=== PATIENT | female | born 1960 | race Caucasian/White ===

== ENCOUNTER 2020-10-24 10:40 | Observation (INO) | payer OTHER, SELFPAY ==
[2020-10-24] VITALS (13 sets, daily range): BP systolic 123–169; BP diastolic 69–91; PULSE 105–124; RESP 15–18; TEMP 36.6; O2SAT 95–98; BMI 29.5; BMI 31.5
[2020-10-24] MEDS: SODIUM CHLORIDE 0.9% 1,000 ML 1000 ML IV ×2 (11:43→13:38)
[2020-10-24 12:21] LABS: Add Manual Diff / Slide Review NO; Basophils Absolute Auto 0 /uL (0-100); Basophils Percent Auto 0.5 % (0-2); Eosinophils Absolute Auto 0 /uL (0-450); Eosinophils Percent Auto 0.3 % (2-4); Hematocrit 37.4 % (36-46); Hemoglobin 12.1 g/dL (12.0-16.0); Lymphocytes Absolute Auto 1000 /uL (1100-4500); Lymphocytes Percent Auto 14.7 % (25-40); Mean Corpuscular HGB Conc 32.5 % (30-36); Mean Corpuscular Hemoglobin 29.7 PG (26-34); Mean Corpuscular Volume 91.3 fL (80-100); Monocytes Absolute Auto 800 /uL (0-900); Neutrophils Absolute Auto 5000 /uL (1500-7000); Neutrophils Percent Auto 73.5 % (50-75); Platelet Count 277 X10^3/uL (150-400); Red Blood Cell Count 4.09 X10^6/uL (4.0-5.2); Red Cell Distribution Width 16.2 % (11.6-14.8); White Blood Cell Count 6.9 X10^3/uL (4.5-11.0)
[2020-10-24 12:26] LABS: Alanine Aminotransferase 247 IU/L (<35); Albumin 4.7 g/dL (3.5-5.0); Albumin Globulin Ratio 1.3 (1.0-2.8); Alkaline Phosphatase 162 U/L (38-126); Aspartate Aminotransferase 239 IU/L (14-36); BUN Creatinine Ratio 26.5 (6-22); Bilirubin Total 0.7 mg/dL (0.2-1.3); Blood Urea Nitrogen 18 mg/dL (7-17); Calcium 9.3 mg/dL (8.4-10.2); Carbon Dioxide 16 mmol/L (22-32); Chloride 100 mmol/L (98-107); Estimated Glomerular Filt Rate > 60.0 mL/min (>60); Ethanol (ETOH) 85 mg/dL; Globulin 3.6 g/dL (1.7-4.1); Glucose 232 mg/dL (80-110); HEMOLYSIS < 15 (0-50); Potassium 3.8 mmol/L (3.4-5.1); Sodium 137 mmol/L (137-145); Total Protein 8.3 g/dL (6.3-8.2)
--- NOTE | 2020-10-24 12:42 | ED.ALCOHOL ---
HPI - Alcohol General Chief Complaint: Toxicology Problem Stated Complaint: alcohol withdrawl x4 days Time Seen by Provider: 10/24/20 12:25 Source: patient Mode of arrival: Ambulatory Limitations: no limitations Related Data Home Medications Medication Instructions Recorded Confirmed bupropion HCl 300 mg 24 hr tablet, 300 mg PO QAM 09/18/20 09/18/20 extended release lisinopril 2.5 mg tablet 2.5 mg PO DAILY 09/18/20 09/18/20 metformin 500 mg tablet 500 mg PO BID tab 09/18/20 09/18/20 omeprazole magnesium 20 mg 20 mg PO DAILY 09/18/20 09/18/20 tablet,delayed release Previous Rx's Medication Instructions Recorded cyclobenzaprine 10 mg tablet 10 mg PO BEDTIME #30 tab 09/18/20 Allergies Allergy/AdvReac Type Severity Reaction Status Date / Time ciprofloxacin [From Cipro] AdvReac GI upset Verified 10/24/20 11:11 morphine AdvReac headache Verified 10/24/20 11:11 Patient History Social History Smoking Status: Never smoker alcohol intake: never Smoking Status: Never smoker alcohol intake frequency: 3 or more drinks per day Alcohol type: hard liquor Substance Use Type: does not use Exam Initial Vital Signs Initial Vital Signs: Vital Signs Temperature 97.9 F 10/24/20 11:09 Pulse Rate 124 H 10/24/20 11:09 Respiratory Rate 15 10/24/20 11:09 Blood Pressure 169/91 H 10/24/20 11:09 Pulse Oximetry 97 10/24/20 11:09 Scores [id number] Citation: @1240-CIWA score 2 GCS [place] coma scale eye opening: Spontaneous [place] coma scale verbal response: Orientated [place] coma scale motor response: Obey commands [place] coma scale total score: 15 Course Orders Ordered: ED Orders 10/24/20 11:35 Complete Blood Count AUTO DIFF Stat Comprehensive Metabolic Panel Stat Ethanol (ETOH) Stat 10/24/20 12:27 EKG-12 Lead Stat 10/24/20 12:41 Lactate (Lactic Acid) Stat Lipase Stat Urine Drug Screen, Rapid Stat Discontinued Medications Sodium Chloride (Normal Saline 0.9%) 1,000 mls @ 1,000 mls/hr IV BOLUS ONE Stop: 10/24/20 12:39 Last Admin: 10/24/20 11:43 Dose: 1,000 mls/hr Documented by: [email or web address] Lorazepam (Lorazepam 2 Mg/Ml Inj) 0.5 mg IV NOW ONE Stop: 10/24/20 12:42 Vital Signs Vital signs: Vital Signs - 8 hr 10/24/20 11:09 Temperature 97.9 F Pulse Rate 124 H Respiratory Rate 15 Blood Pressure 169/91 H Pulse Oximetry 97 MDM - Alcohol Lab Data Result diagrams: 10/24/20 11:35 10/24/20 11:35 Labs: Lab Results 10/24/20 10/24/20 Range/Units 11:35 11:35 WBC 6.9 (4.5-11.0) X10^3/uL RBC 4.09 (4.0-5.2) X10^6/uL Hgb 12.1 (12.0-16.0) g/dL Hct 37.4 (36-46) % MCV 91.3 (80-100) fL MCH 29.7 (26-34) PG MCHC 32.5 (30-36) % RDW 16.2 H (11.6-14.8) % Plt Count 277 (150-400) X10^3/uL Neut % (Auto) 73.5 (50-75) % Lymph % (Auto) 14.7 L (25-40) % [place] % (Auto) 11.0 (3-14) % Eos % (Auto) 0.3 L (2-4) % Baso % (Auto) 0.5 (0-2) % Neut # (Auto) 5000 (1236-8903) /uL Lymph # (Auto) 1000 L (0401-9324) /uL [place] # (Auto) 800 (0-900) /uL Eos # (Auto) 0 (0-450) /uL Baso # (Auto) 0 (0-100) /uL Sodium 137 (137-145) mmol/L Potassium 3.8 (3.4-5.1) mmol/L Chloride 100 (98-107) mmol/L Carbon Dioxide 16 L (22-32) mmol/L BUN 18 H (7-17) mg/dL Creatinine 0.68 (0.52-1.04) mg/dL Estimated GFR > 60.0 (>60) mL/min BUN/Creatinine Ratio 26.5 H (6-22) Glucose 232 H (80-110) mg/dL Calcium 9.3 (8.4-10.2) mg/dL Total Bilirubin 0.7 (0.2-1.3) mg/dL AST 239 H (14-36) IU/L ALT 247 H (<35) IU/L Alkaline Phosphatase 162 H (38-126) U/L Total Protein 8.3 H (6.3-8.2) g/dL Albumin 4.7 (3.5-5.0) g/dL Globulin 3.6 (1.7-4.1) g/dL Albumin/Globulin Ratio 1.3 (1.0-2.8) Ethyl Alcohol 85 H ( - 10) mg/dL Discharge Plan Departure Prescriptions: No Action bupropion HCl [Wellbutrin XL] 300 mg tablet extended release 24 hr 300 mg PO QAM RF: 0 lisinopril 2.5 mg tablet 2.5 mg PO DAILY RF: 0 omeprazole magnesium [Prilosec OTC] 20 mg tablet,delayed release (DR/EC) 20 mg PO DAILY RF: 0 metformin 500 mg tablet 500 mg PO BID RF: 0 cyclobenzaprine 10 mg tablet 10 mg PO BEDTIME Qty: 30 RF: 0
--- NOTE | 2020-10-24 12:44 | ED.ALCOHOL ---
HPI - Alcohol <SANTOSH Chatterjee - Last Filed: 10/24/20 20:34> General Chief Complaint: Toxicology Problem Stated Complaint: alcohol withdrawl x4 days Time Seen by Provider: 10/24/20 12:25 Source: patient Mode of arrival: Ambulatory Limitations: no limitations History of Present Illness HPI narrative: This is a 60 year female, nonsmoker, who has past medical history significant for diabetes, acid reflux, depression, diverticulitis presents to ED with chief complain of epigastric and left lower quadrant pain, chills and feeling sweaty with nausea and 1 episode of vomiting last night. Patient reports left lower quadrant for last 2-3 weeks. She has been having more frequent and loose stools in the mornings but denies blood in her stools. Patient also reports had laparoscopic surgery for left ovarian cyst removal in the past. Patient denies urinary symptoms, chest pain, dyspnea, or back pain. Patient contributed her symptoms to ETOH use and she is currently trying to stop drinking. Patient reports she is here to get stable enough to return to home in [place]. Patient states they have a boat in town and she and her spouse arrived 5 days ago. Patient reports has been drinking a pint of hard liquor daily since August this year. She has been sober for 2.5 years and had used Librium to stop drinking at that time which was prescribed by her PCP and managed by her spouse at home. Patient started drinking due to Covid and stress from this. She states has not been able to see her grandchildren who are 4 and 10 year-old with Covid precautions and they are living in [place] as well. Prior to August, she used to drink lightly about once a week. Patient reports had 1 shot of hard liquor this morning at 9:00 a.m. which helped feeling sweaty and anxious and also had a couple of shots last night at 7:00 p.m. Patient had decreased alcohol intake of half of her usual consumption last 4 days. Patient denies known exposure to COVID. Patient denies cough, runny nose, sore throat. Related Data Home Medications Medication Instructions Recorded Confirmed bupropion HCl 300 mg 24 hr tablet, 300 mg PO QAM 09/18/20 10/24/20 extended release lisinopril 2.5 mg tablet 2.5 mg PO DAILY 09/18/20 10/24/20 metformin 500 mg tablet 1,000 mg PO BID tab 09/18/20 10/24/20 omeprazole magnesium 20 mg 20 mg PO DAILY 09/18/20 10/24/20 tablet,delayed release Previous Rx's Medication Instructions Recorded chlordiazepoxide HCl 25 mg PO BID #5 cap 10/25/20 folic acid 1 mg PO DAILY #30 tab 10/25/20 multivitamin with folic acid 1 tab PO DAILY #30 tab 10/25/20 [Tab-A-Ximena] thiamine HCl (vitamin B1) [Vitamin 100 mg PO DAILY #30 tab 10/25/20 B-1] Allergies Allergy/AdvReac Type Severity Reaction Status Date / Time ciprofloxacin [From Cipro] AdvReac GI upset Verified 10/24/20 11:11 morphine AdvReac headache Verified 10/24/20 11:11 Review of Systems <SANTOSH Chatterjee - Last Filed: 10/24/20 20:34> Review of Systems Narrative: General: Denies (+) sweaty and chills, fatigue, malaise, sweats. HEENT: Denies sinus pain, ear pain, sore throat, difficulty swallowing, dizziness. Respiratory: Denies dyspnea, cough, wheezing, hemoptysis, sputum. Cardiovascular: Denies chest pain, palpitations, orthopnea, edema. Gastrointestinal: HPI : Denies dysuria, frequency, incontinence, hematuria, urinary retention. Musculoskeletal: Denies weakness, joint pain or bony pain. Skin: Denies rash, skin lesions, or other. Neurologic: Denies weakness, headache, numbness, change in speech, confusion, seizures, incoordination. Psychiatric: She denies suicidal or homicidal thoughts. Reports feeling anxious before coming to ED and taking an ETOH average. 12-point review of systems is negative except for those stated above. Patient History <SANTOSH Chatterjee - Last Filed: 10/24/20 20:34> Medical History (Updated 10/24/20 @ 21:12 by SANTOSH Gaspar) Acid reflux Alcoholism Depression Diabetes Diverticulitis Surgical History (Updated 10/24/20 @ 21:12 by SANTOSH Gaspar) History of knee surgery History of removal of ovarian cyst Family History (Updated 10/24/20 @ 21:13 by SANTOSH Gaspar) Father No significant medical problems Mother Hypertension Daughter No significant medical problems Social History household members: spouse Smoking Status: Former smoker alcohol intake: current Smoking Status: Never smoker alcohol intake frequency: 3 or more drinks per day Alcohol type: hard liquor Substance Use Type: does not use Exam <SANTOSH Chatterjee - Last Filed: 10/24/20 20:34> Narrative Exam Narrative: GEN: Alert, oriented x 3, well appearing and nourished, and in no acute distress. Became tearful when talked about her grandchildren. Head: Normal cephalic, atraumatic. No scalp or temporal tenderness, palpable mass or rash. EYES: Pupils are equal, round, and reactive to light and accommodation. Extraocular muscles are intact bilaterally. There is no subconjunctival hemorrhage, exudate and sclera non-icteric. ENT: Hearing grossly intact. Nose without bleeding, purulent discharge or deviation. Mucous membrane moist, no mucosal lesion. Throat without erythema, tonsillar hypertrophy or exudate. Uvula in midline, airway patent. Neck: Trachea in midline. No JVD, non-tender without lymphadenopathy. No masses or thyroid megaly. Supple, non-tender and no meningeal signs. CARDIAC: Normal regular rate and rhythm without murmurs, gallops, or rubs. No chest wall tenderness. No peripheral edema, cyanosis or pallor. Capillary refill is less than 2 seconds. RESPIRATORY: Lungs are clear to auscultate bilaterally. No cough, wheezes, rales, or rhonchi. No stridor, respiratory distress, increase work of breathing, or accessary muscle used. ABD: Abdomen soft, tender to palpate in epigastric and left mid to low quadrant. Abdominal non-distended. No guarding or rebound tenderness to palpate. Bowel sounds are normal in all 4 quadrants. There is no palpable masses or organomegaly. EXT: Full painless ROM of all extremities with no loss of sensation, strength, effusion or edema. SKIN: Warm, dry, normal color for patient. No erythema, lesions or rash over visible areas. BACK: Nontender without deformity or crepitance. No flank tenderness. NEUROLOGICAL: Alert and oriented to place, time and person. Sensation and motor function intact bilaterally. No facial droops, dysphasia. PSYCHIATRIC: Good judgement and reason, without hallucinations, abnormal affect or abnormal behaviors during the examination. Patient is not suicidal or homicidal. Initial Vital Signs Initial Vital Signs: Vital Signs Temperature 97.9 F 10/24/20 11:09 Pulse Rate 124 H 10/24/20 11:09 Respiratory Rate 15 10/24/20 11:09 Blood Pressure 169/91 H 10/24/20 11:09 Pulse Oximetry 97 10/24/20 11:09 <Dutch Hatfield MD - Last Filed: 12/09/20 19:59> Initial Vital Signs Initial Vital Signs: Vital Signs Temperature 97.9 F 10/24/20 11:09 Pulse Rate 124 H 10/24/20 11:09 Respiratory Rate 15 10/24/20 11:09 Blood Pressure 169/91 H 10/24/20 11:09 Pulse Oximetry 97 10/24/20 11:09 Scores <SANTOSH Chatterjee - Last Filed: 10/24/20 20:34> GCS [place] coma scale eye opening: Spontaneous [place] coma scale verbal response: Orientated [place] coma scale motor response: Obey commands [place] coma scale total score: 15 qSOFA Altered Mental Status (GCS <15): No Respiratory rate greater than/equal to 22: No Systolic blood pressure less than or equal to 100: No qSOFA Total: 0 0-1 Not High Risk 1-3 High risk Course <SANTOSH Chatterjee - Last Filed: 10/24/20 20:34> Orders Ordered: Discontinued Medications Acetaminophen (Acetaminophen 325 Mg Tablet) 650 mg PO Q6HR PRN PRN Reason: Fever/Mild Pain (1-3) Al Hydrox/Mg Hydrox/Simethicone (Mag Hydrox/Alum/Simeth 30 Ml Udc) 30 ml PO Q6HR PRN PRN Reason: Dyspepsia Bupropion HCl (Bupropion Xl 150 Mg Tab) 300 mg PO DAILY [facility] Last Admin: 10/25/20 08:07 Dose: 300 mg Documented by: BALJINDER Calcium Carbonate (Calcium Carbonate 500 Mg Tab) 1,000 mg PO Q4HR PRN PRN Reason: Dyspepsia Chlordiazepoxide HCl (Chlordiazepoxide 25 Mg Capsule) 50 mg PO Q6HR [facility] Last Admin: 10/24/20 18:47 Dose: 50 mg Documented by: DAKOTA Chlordiazepoxide HCl (Chlordiazepoxide 25 Mg Capsule) 50 mg PO TID [facility] Chlordiazepoxide HCl (Chlordiazepoxide 25 Mg Capsule) 50 mg PO Q6HR [facility] Last Admin: 10/25/20 05:50 Dose: 50 mg Documented by: Admin: 10/25/20 01:23 Dose: 50 mg Documented by: RAGHU Chlordiazepoxide HCl (Chlordiazepoxide 25 Mg Capsule) 50 mg PO BID [facility] Dextrose (Dextrose 50 % In Water 25 Gm/50 Ml Syringe) 25 gm IV PRN PRN; Protocol PRN Reason: Hypoglycemia Folic Acid (Folic Acid 1 Mg Tablet) 1 mg PO DAILY [facility] Last Admin: 10/25/20 08:07 Dose: 1 mg Documented by: BALJINDER Heparin Sodium (Porcine) (Heparin 5,000 Unit/Ml Vial) 5,000 unit SUBCUT BID [facility] Last Admin: 10/25/20 08:23 Dose: 5,000 unit Documented by: Admin: 10/24/20 21:00 Dose: 5,000 unit Documented by: DAKOTA Hydromorphone HCl (Hydromorphone 0.5 Mg Inj) 0.5 mg IV NOW ONE Stop: 10/24/20 15:36 Last Admin: 10/24/20 15:41 Dose: 0.5 mg Documented by: DONAVAN Sodium Chloride (Normal Saline 0.9%) 1,000 mls @ 1,000 mls/hr IV BOLUS ONE Stop: 10/24/20 12:39 Last Infusion: 10/24/20 13:37 Dose: 0 mls/hr Documented by: Admin: 10/24/20 11:43 Dose: 1,000 mls/hr Documented by: DONAVAN Sodium Chloride (Normal Saline 0.9%) 1,000 mls @ 1,000 mls/hr IV BOLUS ONE Stop: 10/24/20 14:33 Last Infusion: 10/24/20 14:58 Dose: 0 mls/hr Documented by: Admin: 10/24/20 13:38 Dose: 1,000 mls/hr Documented by: DONAVAN Sodium Chloride (Normal Saline 0.9%) 250 mls @ 999 mls/hr IV BOLUS ONE Stop: 10/24/20 13:53 Last Infusion: 10/24/20 15:08 Dose: 0 mls/hr Documented by: Admin: 10/24/20 14:50 Dose: 999 mls/hr Documented by: DONAVAN Piperacillin Sod/Tazobactam (Sod 4.5 gm/ Sodium Chloride) 100 mls @ 200 mls/hr IV NOW ONE Stop: 10/24/20 14:11 Last Admin: 10/24/20 18:35 Dose: Not Given Documented by: DAKOTA Piperacillin/Tazobactam/Dextrose (Zosyn) 4.5 gm in 100 mls @ 200 mls/hr IV NOW ONE Stop: 10/24/20 14:29 Last Infusion: 10/24/20 14:31 Dose: 0 mls/hr Documented by: Admin: 10/24/20 13:57 Dose: 200 mls/hr Documented by: DONAVAN Sodium Chloride (Normal Saline 0.9%) 1,000 mls @ 125 mls/hr IV CONT KRISTA Last Admin: 10/24/20 15:49 Dose: 125 mls/hr Documented by: DONAVAN Sodium Chloride (Normal Saline 0.9%) 1,000 mls @ 125 mls/hr IV CONT KRISTA Last Admin: 10/25/20 03:42 Dose: 125 mls/hr Documented by: MALACHIRASGEOVANNY Magnesium Sulfate 2 gm/ Folic Acid 1 mg/ Thiamine HCl 100 mg / Multivitamins 10 ml/ Sodium Chloride 1,015.2 mls @ 150 mls/hr IV NOW ONE Stop: 10/25/20 02:56 Last Admin: 10/24/20 21:34 Dose: 150 mls/hr Documented by: DAKOTA Sodium Chloride (Normal Saline 0.9%) 500 mls @ 1,000 mls/hr IV BOLUS ONE Stop: 10/24/20 21:14 Last Admin: 10/24/20 20:57 Dose: 1,000 mls/hr Documented by: DAKOAT Insulin Aspart (Insulin Aspart 100 Unit/Ml Insuln Pen) 0 unit SUBCUT [facility]; Protocol Last Admin: 10/25/20 13:01 Dose: Not Given Documented by: Admin: 10/25/20 08:09 Dose: 2 unit Documented by: BALJINDER Cosigned by: JENNIFER Admin: 10/24/20 21:02 Dose: 1 unit Documented by: DAKOTA Cosigned by: LISBETH Ketorolac Tromethamine (Ketorolac 60 Mg/2 Ml Vial) 15 mg IV NOW ONE Stop: 10/24/20 14:48 Last Admin: 10/24/20 14:55 Dose: 15 mg Documented by: DONAVAN Lisinopril (Lisinopril 5 Mg Tablet) 2.5 mg PO DAILY [facility] Last Admin: 10/25/20 08:09 Dose: 2.5 mg Documented by: BALJINDER Lorazepam (Lorazepam 2 Mg/Ml Inj) 0.5 mg IV NOW ONE Stop: 10/24/20 12:42 Last Admin: 10/24/20 12:49 Dose: 0.5 mg Documented by: DONAVAN Lorazepam (Lorazepam 2 Mg/Ml Inj) 0.5 mg IV NOW ONE Stop: 10/24/20 14:48 Last Admin: 10/24/20 14:54 Dose: 0.5 mg Documented by: DONAVAN Lorazepam (Lorazepam 2 Mg/Ml Inj) 0 mg IV CIWAPRN PRN; Protocol PRN Reason: Alcohol Withdrawal Lorazepam (Lorazepam 1 Mg Tablet) 0 mg PO CIWAPRN PRN; Protocol PRN Reason: Alcohol Withdrawal Multivitamins (Multivitamin 1 Tablet) 1 tab PO DAILY [facility] Last Admin: 10/25/20 08:07 Dose: 1 tab Documented by: BALJINDER Naloxone HCl (Naloxone 0.4 Mg/Ml Vial) 0.2 mg IV Q2MIN PRN PRN Reason: Opiate Reversal Ondansetron HCl (Ondansetron 4 Mg/2 Ml Inj) 4 mg IV Q8HR PRN PRN Reason: Nausea And Vomiting Oxycodone HCl (Oxycodone Ir 5 Mg Tablet) 5 mg PO Q4HR PRN PRN Reason: Pain, Moderate (4-6) Oxycodone HCl (Oxycodone Ir 10 Mg Tablet) 10 mg PO Q4HR PRN PRN Reason: Pain, Severe (7-10) Pantoprazole Sodium (Pantoprazole 40 Mg Vial) 40 mg IV NOW ONE Stop: 10/24/20 18:46 Last Admin: 10/24/20 18:54 Dose: 40 mg Documented by: DAKOTA Pantoprazole Sodium (Pantoprazole 20 Mg Tablet) 40 mg PO 0600 [facility] Last Admin: 10/25/20 05:50 Dose: 40 mg Documented by: RAGHU Pantoprazole Sodium (Pantoprazole 40 Mg Tablet) 40 mg PO 0600 [facility] Sodium Chloride (Sodium Chloride 0.9% Flush) 10 ml IV PRN PRN PRN Reason: Flush Sodium Chloride (Sodium Chloride 0.9% Flush) 10 ml IV BID [facility] Last Admin: 10/25/20 08:52 Dose: Not Given Documented by: BALJINDER Thiamine HCl (Thiamine 100 Mg Tablet) 100 mg PO DAILY [facility] Stop: 10/28/20 09:01 Last Admin: 10/25/20 08:07 Dose: 100 mg Documented by: BALJINDER Reevaluation(s) Reevaluation #1: Discussed findings of elevated lactate of 7.9 with the patient and additional lab testings, US of abdomen and antibiotic medication will be administered with the patient. The patient is in NAD but still has mild tachycardia of [address] Hatfield with the findings and he recommended 30 ml/kg IV bolus and to start IV antibiotic medications Zosyn of 4.5 G with additional lab tests. Time: 13:49 Reevaluation #2: Waiting for 2nd Lactate result. Patient reports remaining pain in left quadrant, epigastric region with palpation and rates as 5/10. Time: 15:37 Consultations Consultation #1: Consulted Dr. Hudson for admission under observation for elevated lactate and abdominal pain. She recommended consultation to Dr. Sanderson before moving to [facility]. She recommended additional orders for stool culture, C diff test, VBG and ketones (from 1st blood sample). Time: 15:50 Consultation #2: Spoke with Dr. Sanderson requesting consultation and evaluation on abdominal pain at ER bedside as Dr. Vasquez' request. Time: 16:02 Consultation #3: Dr. Sanderson assessed the patient at bedside and suggested no abdominal surgical intervention is needed at this time and he contributed her symptoms to an alcohol withdrawal. Time: 16:35 Vital Signs Vital signs: Vital Signs - 8 hr 10/24/20 13:35 10/24/20 13:42 10/24/20 14:00 Pulse Rate 109 H 110 H Blood Pressure 136/73 139/76 Pulse Oximetry 96 97 97 10/24/20 14:30 10/24/20 15:00 10/24/20 15:30 Pulse Rate 112 H 110 H 109 H Blood Pressure 124/72 133/69 123/69 Pulse Oximetry 97 98 98 10/24/20 16:00 10/24/20 16:30 Pulse Rate 105 H 108 H Blood Pressure 129/74 155/88 H Pulse Oximetry 96 97 <Dutch Hatfield MD - Last Filed: 12/09/20 19:59> Orders Ordered: Discontinued Medications Acetaminophen (Acetaminophen 325 Mg Tablet) 650 mg PO Q6HR PRN PRN Reason: Fever/Mild Pain (1-3) Al Hydrox/Mg Hydrox/Simethicone (Mag Hydrox/Alum/Simeth 30 Ml Udc) 30 ml PO Q6HR PRN PRN Reason: Dyspepsia Bupropion HCl (Bupropion Xl 150 Mg Tab) 300 mg PO DAILY [facility] Last Admin: 10/25/20 08:07 Dose: 300 mg Documented by: BALJINDER Calcium Carbonate (Calcium Carbonate 500 Mg Tab) 1,000 mg PO Q4HR PRN PRN Reason: Dyspepsia Chlordiazepoxide HCl (Chlordiazepoxide 25 Mg Capsule) 50 mg PO Q6HR [facility] Last Admin: 10/24/20 18:47 Dose: 50 mg Documented by: DAKOTA Chlordiazepoxide HCl (Chlordiazepoxide 25 Mg Capsule) 50 mg PO TID [facility] Chlordiazepoxide HCl (Chlordiazepoxide 25 Mg Capsule) 50 mg PO Q6HR [facility] Last Admin: 10/25/20 05:50 Dose: 50 mg Documented by: Admin: 10/25/20 01:23 Dose: 50 mg Documented by: RAGHU Chlordiazepoxide HCl (Chlordiazepoxide 25 Mg Capsule) 50 mg PO BID [facility] Dextrose (Dextrose 50 % In Water 25 Gm/50 Ml Syringe) 25 gm IV PRN PRN; Protocol PRN Reason: Hypoglycemia Folic Acid (Folic Acid 1 Mg Tablet) 1 mg PO DAILY [facility] Last Admin: 10/25/20 08:07 Dose: 1 mg Documented by: BALJINDER Heparin Sodium (Porcine) (Heparin 5,000 Unit/Ml Vial) 5,000 unit SUBCUT BID [facility] Last Admin: 10/25/20 08:23 Dose: 5,000 unit Documented by: Admin: 10/24/20 21:00 Dose: 5,000 unit Documented by: DAKOTA Hydromorphone HCl (Hydromorphone 0.5 Mg Inj) 0.5 mg IV NOW ONE Stop: 10/24/20 15:36 Last Admin: 10/24/20 15:41 Dose: 0.5 mg Documented by: DONAVAN Sodium Chloride (Normal Saline 0.9%) 1,000 mls @ 1,000 mls/hr IV BOLUS ONE Stop: 10/24/20 12:39 Last Infusion: 10/24/20 13:37 Dose: 0 mls/hr Documented by: Admin: 10/24/20 11:43 Dose: 1,000 mls/hr Documented by: DONAVAN Sodium Chloride (Normal Saline 0.9%) 1,000 mls @ 1,000 mls/hr IV BOLUS ONE Stop: 10/24/20 14:33 Last Infusion: 10/24/20 14:58 Dose: 0 mls/hr Documented by: Admin: 10/24/20 13:38 Dose: 1,000 mls/hr Documented by: DONAVAN Sodium Chloride (Normal Saline 0.9%) 250 mls @ 999 mls/hr IV BOLUS ONE Stop: 10/24/20 13:53 Last Infusion: 10/24/20 15:08 Dose: 0 mls/hr Documented by: Admin: 10/24/20 14:50 Dose: 999 mls/hr Documented by: DONAVAN Piperacillin Sod/Tazobactam (Sod 4.5 gm/ Sodium Chloride) 100 mls @ 200 mls/hr IV NOW ONE Stop: 10/24/20 14:11 Last Admin: 10/24/20 18:35 Dose: Not Given Documented by: DAKOTA Piperacillin/Tazobactam/Dextrose (Zosyn) 4.5 gm in 100 mls @ 200 mls/hr IV NOW ONE Stop: 10/24/20 14:29 Last Infusion: 10/24/20 14:31 Dose: 0 mls/hr Documented by: Admin: 10/24/20 13:57 Dose: 200 mls/hr Documented by: DONAVAN Sodium Chloride (Normal Saline 0.9%) 1,000 mls @ 125 mls/hr IV CONT KRISTA Last Admin: 10/24/20 15:49 Dose: 125 mls/hr Documented by: DONAVAN Sodium Chloride (Normal Saline 0.9%) 1,000 mls @ 125 mls/hr IV CONT [facility] Last Admin: 10/25/20 03:42 Dose: 125 mls/hr Documented by: RAGHU Magnesium Sulfate 2 gm/ Folic Acid 1 mg/ Thiamine HCl 100 mg / Multivitamins 10 ml/ Sodium Chloride 1,015.2 mls @ 150 mls/hr IV NOW ONE Stop: 10/25/20 02:56 Last Admin: 10/24/20 21:34 Dose: 150 mls/hr Documented by: DAKOTA Sodium Chloride (Normal Saline 0.9%) 500 mls @ 1,000 mls/hr IV BOLUS ONE Stop: 10/24/20 21:14 Last Admin: 10/24/20 20:57 Dose: 1,000 mls/hr Documented by: DAKOTA Insulin Aspart (Insulin Aspart 100 Unit/Ml Insuln Pen) 0 unit SUBCUT [facility]; Protocol Last Admin: 10/25/20 13:01 Dose: Not Given Documented by: Admin: 10/25/20 08:09 Dose: 2 unit Documented by: BALJINDER Cosigned by: JENNIFER Admin: 10/24/20 21:02 Dose: 1 unit Documented by: DAKOTA Cosigned by: LISBETH Ketorolac Tromethamine (Ketorolac 60 Mg/2 Ml Vial) 15 mg IV NOW ONE Stop: 10/24/20 14:48 Last Admin: 10/24/20 14:55 Dose: 15 mg Documented by: DONAVAN Lisinopril (Lisinopril 5 Mg Tablet) 2.5 mg PO DAILY [facility] Last Admin: 10/25/20 08:09 Dose: 2.5 mg Documented by: BALJINDER Lorazepam (Lorazepam 2 Mg/Ml Inj) 0.5 mg IV NOW ONE Stop: 10/24/20 12:42 Last Admin: 10/24/20 12:49 Dose: 0.5 mg Documented by: DONAVAN Lorazepam (Lorazepam 2 Mg/Ml Inj) 0.5 mg IV NOW ONE Stop: 10/24/20 14:48 Last Admin: 10/24/20 14:54 Dose: 0.5 mg Documented by: DONAVAN Lorazepam (Lorazepam 2 Mg/Ml Inj) 0 mg IV CIWAPRN PRN; Protocol PRN Reason: Alcohol Withdrawal Lorazepam (Lorazepam 1 Mg Tablet) 0 mg PO CIWAPRN PRN; Protocol PRN Reason: Alcohol Withdrawal Multivitamins (Multivitamin 1 Tablet) 1 tab PO DAILY [facility] Last Admin: 10/25/20 08:07 Dose: 1 tab Documented by: BALJINDER Naloxone HCl (Naloxone 0.4 Mg/Ml Vial) 0.2 mg IV Q2MIN PRN PRN Reason: Opiate Reversal Ondansetron HCl (Ondansetron 4 Mg/2 Ml Inj) 4 mg IV Q8HR PRN PRN Reason: Nausea And Vomiting Oxycodone HCl (Oxycodone Ir 5 Mg Tablet) 5 mg PO Q4HR PRN PRN Reason: Pain, Moderate (4-6) Oxycodone HCl (Oxycodone Ir 10 Mg Tablet) 10 mg PO Q4HR PRN PRN Reason: Pain, Severe (7-10) Pantoprazole Sodium (Pantoprazole 40 Mg Vial) 40 mg IV NOW ONE Stop: 10/24/20 18:46 Last Admin: 10/24/20 18:54 Dose: 40 mg Documented by: DAKOTA Pantoprazole Sodium (Pantoprazole 20 Mg Tablet) 40 mg PO 0600 [facility] Last Admin: 10/25/20 05:50 Dose: 40 mg Documented by: RAGHU Pantoprazole Sodium (Pantoprazole 40 Mg Tablet) 40 mg PO 0600 [facility] Sodium Chloride (Sodium Chloride 0.9% Flush) 10 ml IV PRN PRN PRN Reason: Flush Sodium Chloride (Sodium Chloride 0.9% Flush) 10 ml IV BID [facility] Last Admin: 10/25/20 08:52 Dose: Not Given Documented by: BALJINDER Thiamine HCl (Thiamine 100 Mg Tablet) 100 mg PO DAILY [facility] Stop: 10/28/20 09:01 Last Admin: 10/25/20 08:07 Dose: 100 mg Documented by: BALJINDER Vital Signs Vital signs: Vital Signs - 8 hr 10/24/20 13:35 10/24/20 13:42 10/24/20 14:00 Pulse Rate 109 H 110 H Blood Pressure 136/73 139/76 Pulse Oximetry 96 97 97 10/24/20 14:30 10/24/20 15:00 10/24/20 15:30 Pulse Rate 112 H 110 H 109 H Blood Pressure 124/72 133/69 123/69 Pulse Oximetry 97 98 98 10/24/20 16:00 10/24/20 16:30 Pulse Rate 105 H 108 H Blood Pressure 129/74 155/88 H Pulse Oximetry 96 97 MDM - Alcohol <DANIEL ChatterjeeP - Last Filed: 10/24/20 20:34> Differential Diagnosis Differential diagnosis: Likely alcohol withdrawal syndrome (Cholecystitis, pancreatitis, diverticulitis, kidney infection, pneumonia, dehydration, DKA, ACS) Medical Records Attestation: I reviewed the patient's medical records. Lab Data Attestation: I reviewed the patient's lab results. Result diagrams: 10/25/20 05:12 10/25/20 05:12 Labs: Lab Results 10/24/20 10/24/20 10/24/20 Range/Units 11:35 11:35 11:35 WBC 6.9 (4.5-11.0) X10^3/uL RBC 4.09 (4.0-5.2) X10^6/uL Hgb 12.1 (12.0-16.0) g/dL Hct 37.4 (36-46) % MCV 91.3 (80-100) fL MCH 29.7 (26-34) PG MCHC 32.5 (30-36) % RDW 16.2 H (11.6-14.8) % Plt Count 277 (150-400) X10^3/uL Neut % (Auto) 73.5 (50-75) % Lymph % (Auto) 14.7 L (25-40) % Glasscock % (Auto) 11.0 (3-14) % Eos % (Auto) 0.3 L (2-4) % Baso % (Auto) 0.5 (0-2) % Neut # (Auto) 5000 (3139-9892) /uL Lymph # (Auto) 1000 L (6550-9134) /uL [place] # (Auto) 800 (0-900) /uL Eos # (Auto) 0 (0-450) /uL Baso # (Auto) 0 (0-100) /uL VBG pH (7.33-7.43) VBG pCO2 (45-50) mmHg VBG pO2 (35-45) mmHg VBG HCO3 (23-28) mmol/L VBG Total CO2 (24-29) mmol/L VBG O2 Saturation (70-75) % VBG Base Excess (0-4) mmol/L Sodium 137 (137-145) mmol/L Potassium 3.8 (3.4-5.1) mmol/L Chloride 100 (98-107) mmol/L Carbon Dioxide 16 L (22-32) mmol/L BUN 18 H (7-17) mg/dL Creatinine 0.68 (0.52-1.04) mg/dL Estimated GFR > 60.0 (>60) mL/min BUN/Creatinine Ratio 26.5 H (6-22) Glucose 232 H (80-110) mg/dL Lactate 7.9 H* (0.7-2.1) mmol/L Calcium 9.3 (8.4-10.2) mg/dL Total Bilirubin 0.7 (0.2-1.3) mg/dL AST 239 H (14-36) IU/L ALT 247 H (<35) IU/L Alkaline Phosphatase 162 H (38-126) U/L Total Creatine Kinase (30-135) U/L CK-MB (CK-2) (<2.37) ng/mL CK-MB (CK-2) Rel Index (1.5-5.0) % Troponin I (0.01-0.034) ng/mL Total Protein 8.3 H (6.3-8.2) g/dL Albumin 4.7 (3.5-5.0) g/dL Globulin 3.6 (1.7-4.1) g/dL Albumin/Globulin Ratio 1.3 (1.0-2.8) Lipase (23-300) U/L Procalcitonin (<0.5) ng/mL Prolactin (3.0-18.6) ng/mL U Opiates 300ng/mL cut (Negative) Ur Oxycodone Screen (Negative) Urine Methadone Screen (Negative) Ur Barbiturates Screen (Negative) U Tricyclic Antidepress (Negative) Ur Phencyclidine Scrn (Negative) Ur Amphetamines Screen (Negative) U Methamphetamines Scrn (Negative) Ur MDMA Scrn (Ecstasy) (Negative) U Benzodiazepines Scrn (Negative) Urine Cocaine Screen (Negative) U Marijuana (THC) Screen (Negative) Ethyl Alcohol 85 H ( - 10) mg/dL Ketones (<0.27) mmol/L COVID-19 PCR (Negative) 10/24/20 10/24/20 10/24/20 Range/Units 11:35 11:35 11:35 WBC (4.5-11.0) X10^3/uL RBC (4.0-5.2) X10^6/uL Hgb (12.0-16.0) g/dL Hct (36-46) % MCV (80-100) fL MCH (26-34) PG MCHC (30-36) % RDW (11.6-14.8) % Plt Count (150-400) X10^3/uL Neut % (Auto) (50-75) % Lymph % (Auto) (25-40) % [place] % (Auto) (3-14) % Eos % (Auto) (2-4) % Baso % (Auto) (0-2) % Neut # (Auto) (0169-3814) /uL Lymph # (Auto) (4706-2934) /uL [place] # (Auto) (0-900) /uL Eos # (Auto) (0-450) /uL Baso # (Auto) (0-100) /uL VBG pH (7.33-7.43) VBG pCO2 (45-50) mmHg VBG pO2 (35-45) mmHg VBG HCO3 (23-28) mmol/L VBG Total CO2 (24-29) mmol/L VBG O2 Saturation (70-75) % VBG Base Excess (0-4) mmol/L Sodium (137-145) mmol/L Potassium (3.4-5.1) mmol/L Chloride (98-107) mmol/L Carbon Dioxide (22-32) mmol/L BUN (7-17) mg/dL Creatinine (0.52-1.04) mg/dL Estimated GFR (>60) mL/min BUN/Creatinine Ratio (6-22) Glucose (80-110) mg/dL Lactate (0.7-2.1) mmol/L Calcium (8.4-10.2) mg/dL Total Bilirubin (0.2-1.3) mg/dL AST (14-36) IU/L ALT (<35) IU/L Alkaline Phosphatase (38-126) U/L Total Creatine Kinase 160 H (30-135) U/L CK-MB (CK-2) 1.40 (<2.37) ng/mL CK-MB (CK-2) Rel Index 0.9 L (1.5-5.0) % Troponin I < 0.012 (0.01-0.034) ng/mL Total Protein (6.3-8.2) g/dL Albumin (3.5-5.0) g/dL Globulin (1.7-4.1) g/dL Albumin/Globulin Ratio (1.0-2.8) Lipase 86 (23-300) U/L Procalcitonin (<0.5) ng/mL Prolactin (3.0-18.6) ng/mL U Opiates 300ng/mL cut (Negative) Ur Oxycodone Screen (Negative) Urine Methadone Screen (Negative) Ur Barbiturates Screen (Negative) U Tricyclic Antidepress (Negative) Ur Phencyclidine Scrn (Negative) Ur Amphetamines Screen (Negative) U Methamphetamines Scrn (Negative) Ur MDMA Scrn (Ecstasy) (Negative) U Benzodiazepines Scrn (Negative) Urine Cocaine Screen (Negative) U Marijuana (THC) Screen (Negative) Ethyl Alcohol ( - 10) mg/dL Ketones 0.40 H (<0.27) mmol/L COVID-19 PCR (Negative) 10/24/20 10/24/20 10/24/20 Range/Units 11:35 13:40 14:00 WBC (4.5-11.0) X10^3/uL RBC (4.0-5.2) X10^6/uL Hgb (12.0-16.0) g/dL Hct (36-46) % MCV (80-100) fL MCH (26-34) PG MCHC (30-36) % RDW (11.6-14.8) % Plt Count (150-400) X10^3/uL Neut % (Auto) (50-75) % Lymph % (Auto) (25-40) % [place] % (Auto) (3-14) % Eos % (Auto) (2-4) % Baso % (Auto) (0-2) % Neut # (Auto) (9985-2895) /uL Lymph # (Auto) (8808-9174) /uL [place] # (Auto) (0-900) /uL Eos # (Auto) (0-450) /uL Baso # (Auto) (0-100) /uL VBG pH (7.33-7.43) VBG pCO2 (45-50) mmHg VBG pO2 (35-45) mmHg VBG HCO3 (23-28) mmol/L VBG Total CO2 (24-29) mmol/L VBG O2 Saturation (70-75) % VBG Base Excess (0-4) mmol/L Sodium (137-145) mmol/L Potassium (3.4-5.1) mmol/L Chloride (98-107) mmol/L Carbon Dioxide (22-32) mmol/L BUN (7-17) mg/dL Creatinine (0.52-1.04) mg/dL Estimated GFR (>60) mL/min BUN/Creatinine Ratio (6-22) Glucose (80-110) mg/dL Lactate (0.7-2.1) mmol/L Calcium (8.4-10.2) mg/dL Total Bilirubin (0.2-1.3) mg/dL AST (14-36) IU/L ALT (<35) IU/L Alkaline Phosphatase (38-126) U/L Total Creatine Kinase (30-135) U/L CK-MB (CK-2) (<2.37) ng/mL CK-MB (CK-2) Rel Index (1.5-5.0) % Troponin I (0.01-0.034) ng/mL Total Protein (6.3-8.2) g/dL Albumin (3.5-5.0) g/dL Globulin (1.7-4.1) g/dL Albumin/Globulin Ratio (1.0-2.8) Lipase (23-300) U/L Procalcitonin 0.11 (<0.5) ng/mL Prolactin 11.9 (3.0-18.6) ng/mL U Opiates 300ng/mL cut Negative (Negative) Ur Oxycodone Screen Negative (Negative) Urine Methadone Screen Negative (Negative) Ur Barbiturates Screen Negative (Negative) U Tricyclic Antidepress Negative (Negative) Ur Phencyclidine Scrn Negative (Negative) Ur Amphetamines Screen Negative (Negative) U Methamphetamines Scrn Negative (Negative) Ur MDMA Scrn (Ecstasy) Negative (Negative) U Benzodiazepines Scrn Positive H (Negative) Urine Cocaine Screen Negative (Negative) U Marijuana (THC) Screen Negative (Negative) Ethyl Alcohol ( - 10) mg/dL Ketones (<0.27) mmol/L COVID-19 PCR (Negative) 10/24/20 10/24/20 10/24/20 Range/Units 14:02 15:04 16:25 WBC (4.5-11.0) X10^3/uL RBC (4.0-5.2) X10^6/uL Hgb (12.0-16.0) g/dL Hct (36-46) % MCV (80-100) fL MCH (26-34) PG MCHC (30-36) % RDW (11.6-14.8) % Plt Count (150-400) X10^3/uL Neut % (Auto) (50-75) % Lymph % (Auto) (25-40) % [place] % (Auto) (3-14) % Eos % (Auto) (2-4) % Baso % (Auto) (0-2) % Neut # (Auto) (2553-8428) /uL Lymph # (Auto) (0632-6365) /uL [place] # (Auto) (0-900) /uL Eos # (Auto) (0-450) /uL Baso # (Auto) (0-100) /uL VBG pH 7.37 (7.33-7.43) VBG pCO2 37.6 L (45-50) mmHg VBG pO2 52 H (35-45) mmHg VBG HCO3 22 L (23-28) mmol/L VBG Total CO2 23 L (24-29) mmol/L VBG O2 Saturation 86 H (70-75) % VBG Base Excess -4.0 L (0-4) mmol/L Sodium (137-145) mmol/L Potassium (3.4-5.1) mmol/L Chloride (98-107) mmol/L Carbon Dioxide (22-32) mmol/L BUN (7-17) mg/dL Creatinine (0.52-1.04) mg/dL Estimated GFR (>60) mL/min BUN/Creatinine Ratio (6-22) Glucose (80-110) mg/dL Lactate 5.5 H* (0.7-2.1) mmol/L Calcium (8.4-10.2) mg/dL Total Bilirubin (0.2-1.3) mg/dL AST (14-36) IU/L ALT (<35) IU/L Alkaline Phosphatase (38-126) U/L Total Creatine Kinase (30-135) U/L CK-MB (CK-2) (<2.37) ng/mL CK-MB (CK-2) Rel Index (1.5-5.0) % Troponin I (0.01-0.034) ng/mL Total Protein (6.3-8.2) g/dL Albumin (3.5-5.0) g/dL Globulin (1.7-4.1) g/dL Albumin/Globulin Ratio (1.0-2.8) Lipase (23-300) U/L Procalcitonin (<0.5) ng/mL Prolactin (3.0-18.6) ng/mL U Opiates 300ng/mL cut (Negative) Ur Oxycodone Screen (Negative) Urine Methadone Screen (Negative) Ur Barbiturates Screen (Negative) U Tricyclic Antidepress (Negative) Ur Phencyclidine Scrn (Negative) Ur Amphetamines Screen (Negative) U Methamphetamines Scrn (Negative) Ur MDMA Scrn (Ecstasy) (Negative) U Benzodiazepines Scrn (Negative) Urine Cocaine Screen (Negative) U Marijuana (THC) Screen (Negative) Ethyl Alcohol ( - 10) mg/dL Ketones (<0.27) mmol/L COVID-19 PCR Negative (Negative) Urine Dip Bedside Urine Glucose 250 mg/dl Bedside Urine Bilirubin - Negative Bedside Urine Ketone + 15 Urine Specific [place] 1.030 Bedside Urine Occult Blood - Negative Bedside Urine pH 6.0 Bedside Urine Protein +/- 15 Bedside Urine Urobilinogen - Negative Bedside Urine Nitrite - Negative Bedside Urine Leukocytes - Negative Esterase ABG Data ABG results: VBG result: compensated met acidosis pH 7.365 PCO2 37.6 PO2 52 BE -4 HCO3 21[address] scan - abdomen/pelvis: Radiologist's [employer]ress[employer]: [address] [id number] Scan ReportSigned Patient: Elisa Gómez#: [id number]: 8Acct:[id number]/Sex: 60 / FDate of Service: 10/24/20Loc: EDAccession Number: [id number] Procedure: CT abdomen pelvis w con Ordering Provider: Shawn Cole PROCEDURE: CT ABDOMEN PELVIS W CON INDICATIONS: LLQ, epigastric pain. hx of diverticulitis, elevated LFTs TECHNIQUE: After the administration of intravenous contrast, 5 mm thick sections acquired from the diaphragm to the symphysis. 5 mm coronal and sagittal reformats were acquired. For radiation dose reduction, the following was used: automated exposure control, adjustment of mA and/or kV according to patient size. COMPARISON: None. FINDINGS: Image quality: Excellent. ABDOMEN: Lung bases: Lung bases are clear. Heart size is normal. Solid organs: Liver is normal in size and enhancement. There is prominent fatty infiltration within the liver parenchyma. Gallbladder appears normal . Biliary system is non dilated. Pancreas enhances normally. Spleen is normal in size and enhancement. No adrenal nodules. Kidneys demonstrate normal size and enhancement, without hydronephrosis. Peritoneum and bowel: Bowel loops demonstrate normal wall thickness and caliber. No free fluid or air. Nodes and vessels: No retroperitoneal or mesenteric adenopathy by size criteria. Aorta and inferior vena cava are normal in size. Miscellaneous: No ventral hernias. PELVIS: Genitourinary: Bladder wall thickness is normal. Miscellaneous: No inguinal hernias or adenopathy. Extensive sigmoid diverticulosis, without acute diverticulitis visualized. Bones: No suspicious bony lesions. No vertebral body compression fractures. IMPRESSION: Prominent hepatic steatosis, no focal liver lesion seen. No ascites or varices are found. Relatively prominent sigmoid diverticulosis is present, without acute diverticulitis found. A definite source of new left lower quadrant pain is not identified. Dictated by: Hector Wong M.D. on 10/24/2020 at 13:24 Approved by: Hector Wong M.D. on 10/24/2020 at 13:25 Chest x-ray: Radiologist[facility]ress[facility]: [address] [id number] ReportSigned Patient: Elisa Gómez#: [id number]: 8Acct:[id number]/Sex: 60 / FDate of Service: 10/24/20Loc: EDAccession Number: [id number] Procedure: XR chest 1V Ordering Provider: Shawn Cole PROCEDURE: XR CHEST 1V INDICATIONS: elevated lactate, n/v TECHNIQUE: One view of the chest was acquired. COMPARISON: None. FINDINGS: Surgical changes and devices: None. Lungs and pleura: Lungs are clear. No pleural effusions or pneumothorax. Mediastinum: Mediastinal contours appear normal. Heart size is normal. Bones and chest wall: No suspicious bony lesions. Overlying soft tissues appear unremarkable. IMPRESSION: No acute cardiopulmonary abnormality. Dictated by: Lázaro Dumont M.D. on 10/24/2020 at 13:21 Approved by: Lázaro Dumont M.D. on 10/24/2020 at 13:22 US - abdomen: Radiologist's Impressoin: [address] [id number] ReportSigned Patient: Elisa Gómez#: [id number]: 8Acct:[id number]/Sex: 60 / FDate of Service: 10/24/20Loc: EDAccession Number: [id number] Procedure: US abdomen limited Ordering Provider: Shawn Cole PROCEDURE: US ABDOMEN LIMITED INDICATIONS: EPIGASTRIC PAIN; ELEVATED LACTATE TECHNIQUE: Real-time scanning was performed of the abdominal and retroperitoneal organs, with image documentation. COMPARISON: None. FINDINGS: Liver: Liver is enlarged with diffusely increased liver parenchymal echotexture. Liver measures 22 cm in length. Gallbladder: There is no gallstone. Go no gallbladder wall thickening or pericholecystic fluid. No sonographic King sign. Biliary ducts: Intrahepatic bile ducts are non-dilated. Extrahepatic bile duct caliber measures 5.4 mm. Normal is 6-7 mm or less in diameter, or 10 mm or less post-cholecystectomy. Pancreas: Visualized portions of the pancreas are sonographically normal. IMPRESSION: 1. Hepatomegaly and hepatic steatosis. No discrete hepatic lesion. 2. Normal gallbladder. No biliary ductal dilatation. Dictated by: Saul Greene M.D. on 10/24/2020 at 14:28 Approved by: Saul Greene M.D. on 10/24/2020 at 14:29 ECG Data Attestation: I personally reviewed and interpreted this ECG as follows: Prior ECG tracings: not available for review Interpretation: Sinus tachycardia rate at 111. Normal [place]. NM interval 140, QRS duration 80, QT/QTC 368/500. Non specific T wave abnormality No acute ST changes. MDM Narrative Medical decision making narrative: Initial CIWA-2 (Mild nausea, Mild anxious) This is a 60-year-old female presents to ED with chief complain of nausea, 1 episode of vomiting, feeling anxious, epigastric and left quadrant pain. Patient reports subjective chills and feeling hot as associated symptoms. She also reports 2-3 episodes of loose stools daily. Patient contributed her symptoms as alcohol withdrawal and has been decreasing alcohol intake last 4 days from usual 1 pint consumption since August to about 1/2 pint. Physical exam with tenderness to palpate in epigastric and left quadrant pain. She presented with tachycardia rate in 120's. EKG shows sinus tachycardia without acute ST changes. Cardiac enzymes were negative. No leukocytosis with WBC of 6.9. Normal limits of H/H of 12.1/37.4. Lactate was significantly elevated to 7.9 with normal calcitonin. LFTs were elevated with AST of 239, ALT of 247 and Alk Phos of 162 with normal total bili of 0.7 and Total protein of 8.3. Normal lipase of 86. Normal kidney function test with slightly elevated BUN/creatinine ratio of 26.8 indicating some dehydration. Glucose was elevated to 232 and the patient has history of DM and takes Metformin. With elevated lactate and patient has history of diverticulitis with patient's abdominal chief complain, concerned for surgical abdomen or abscess and CT of abdomen/pelvis obtained. CT results shows fatty infiltration of the liver, or gallbladder, non dilated biliary system. Normal pancreas. Bowel loops demonstrate normal wall thickness and caliber without free fluid or air and relatively prominent sigmoid diverticulosis without acute diverticulitis appreciated. US abdomen obtained in addition which showed hepatomegaly with hepatic steatosis without hepatics lesion. No gallbladder or biliary ductal dilation appreciated. No signs of UTI. UDS shows benzo which she received before providing urine sample. Chest x-ray without acute findings. Patient received fluid resuscitation of NS 30 ml/Kg which improved lactate to 5.5. Consulted Dr. Hatfield and he recommended covering patient with IV antibiotic medication, Zosyn 4.5 Gm while getting additional tests are being completed which patient received. No obvious etiology for significant elevation in lactic acidosis at this time. Dr. Vasquez consulted for admission for observation to monitor for alcohol withdrawal and trending lactate and treat for IV hydration and she kindly accepted the patient's care. Dr. Vasquez recommended to consult Dr. Sanderson for an ED evaluation for possible endoscopy and left quadrant pain for any indications for surgical interventions. Dr. Vasquez also recommended additional tests and obtained VBG, ketones, and ordered stool culture for PCR and C-Diff test. The patient was medicated with Protonix, Toradol, Zofran, Dilaudid and two doses of 0.5 mg Ativan for alcohol withdrawal symptoms. <Dutch Hatfield MD - Last Filed: 12/09/20 19:59> Lab Data Labs: Lab Results 10/24/20 10/24/20 10/24/20 Range/Units 11:35 11:35 11:35 WBC 6.9 (4.5-11.0) X10^3/uL RBC 4.09 (4.0-5.2) X10^6/uL Hgb 12.1 (12.0-16.0) g/dL Hct 37.4 (36-46) % MCV 91.3 (80-100) fL MCH 29.7 (26-34) PG MCHC 32.5 (30-36) % RDW 16.2 H (11.6-14.8) % Plt Count 277 (150-400) X10^3/uL Neut % (Auto) 73.5 (50-75) % Lymph % (Auto) 14.7 L (25-40) % [place] % (Auto) 11.0 (3-14) % Eos % (Auto) 0.3 L (2-4) % Baso % (Auto) 0.5 (0-2) % Neut # (Auto) 5000 (7203-2450) /uL Lymph # (Auto) 1000 L (9368-1560) /uL [place] # (Auto) 800 (0-900) /uL Eos # (Auto) 0 (0-450) /uL Baso # (Auto) 0 (0-100) /uL VBG pH (7.33-7.43) VBG pCO2 (45-50) mmHg VBG pO2 (35-45) mmHg VBG HCO3 (23-28) mmol/L VBG Total CO2 (24-29) mmol/L VBG O2 Saturation (70-75) % VBG Base Excess (0-4) mmol/L Sodium 137 (137-145) mmol/L Potassium 3.8 (3.4-5.1) mmol/L Chloride 100 (98-107) mmol/L Carbon Dioxide 16 L (22-32) mmol/L BUN 18 H (7-17) mg/dL Creatinine 0.68 (0.52-1.04) mg/dL Estimated GFR > 60.0 (>60) mL/min BUN/Creatinine Ratio 26.5 H (6-22) Glucose 232 H (80-110) mg/dL Lactate 7.9 H* (0.7-2.1) mmol/L Calcium 9.3 (8.4-10.2) mg/dL Total Bilirubin 0.7 (0.2-1.3) mg/dL AST 239 H (14-36) IU/L ALT 247 H (<35) IU/L Alkaline Phosphatase 162 H (38-126) U/L Total Creatine Kinase (30-135) U/L CK-MB (CK-2) (<2.37) ng/mL CK-MB (CK-2) Rel Index (1.5-5.0) % Troponin I (0.01-0.034) ng/mL Total Protein 8.3 H (6.3-8.2) g/dL Albumin 4.7 (3.5-5.0) g/dL Globulin 3.6 (1.7-4.1) g/dL Albumin/Globulin Ratio 1.3 (1.0-2.8) Lipase (23-300) U/L Procalcitonin (<0.5) ng/mL Prolactin (3.0-18.6) ng/mL U Opiates 300ng/mL cut (Negative) Ur Oxycodone Screen (Negative) Urine Methadone Screen (Negative) Ur Barbiturates Screen (Negative) U Tricyclic Antidepress (Negative) Ur Phencyclidine Scrn (Negative) Ur Amphetamines Screen (Negative) U Methamphetamines Scrn (Negative) Ur MDMA Scrn (Ecstasy) (Negative) U Benzodiazepines Scrn (Negative) Urine Cocaine Screen (Negative) U Marijuana (THC) Screen (Negative) Ethyl Alcohol 85 H ( - 10) mg/dL Ketones (<0.27) mmol/L COVID-19 PCR (Negative) 10/24/20 10/24/20 10/24/20 Range/Units 11:35 11:35 11:35 WBC (4.5-11.0) X10^3/uL RBC (4.0-5.2) X10^6/uL Hgb (12.0-16.0) g/dL Hct (36-46) % MCV (80-100) fL MCH (26-34) PG MCHC (30-36) % RDW (11.6-14.8) % Plt Count (150-400) X10^3/uL Neut % (Auto) (50-75) % Lymph % (Auto) (25-40) % [place] % (Auto) (3-14) % Eos % (Auto) (2-4) % Baso % (Auto) (0-2) % Neut # (Auto) (2582-3066) /uL Lymph # (Auto) (9925-8515) /uL [place] # (Auto) (0-900) /uL Eos # (Auto) (0-450) /uL Baso # (Auto) (0-100) /uL VBG pH (7.33-7.43) VBG pCO2 (45-50) mmHg VBG pO2 (35-45) mmHg VBG HCO3 (23-28) mmol/L VBG Total CO2 (24-29) mmol/L VBG O2 Saturation (70-75) % VBG Base Excess (0-4) mmol/L Sodium (137-145) mmol/L Potassium (3.4-5.1) mmol/L Chloride (98-107) mmol/L Carbon Dioxide (22-32) mmol/L BUN (7-17) mg/dL Creatinine (0.52-1.04) mg/dL Estimated GFR (>60) mL/min BUN/Creatinine Ratio (6-22) Glucose (80-110) mg/dL Lactate (0.7-2.1) mmol/L Calcium (8.4-10.2) mg/dL Total Bilirubin (0.2-1.3) mg/dL AST (14-36) IU/L ALT (<35) IU/L Alkaline Phosphatase (38-126) U/L Total Creatine Kinase 160 H (30-135) U/L CK-MB (CK-2) 1.40 (<2.37) ng/mL CK-MB (CK-2) Rel Index 0.9 L (1.5-5.0) % Troponin I < 0.012 (0.01-0.034) ng/mL Total Protein (6.3-8.2) g/dL Albumin (3.5-5.0) g/dL Globulin (1.7-4.1) g/dL Albumin/Globulin Ratio (1.0-2.8) Lipase 86 (23-300) U/L Procalcitonin (<0.5) ng/mL Prolactin (3.0-18.6) ng/mL U Opiates 300ng/mL cut (Negative) Ur Oxycodone Screen (Negative) Urine Methadone Screen (Negative) Ur Barbiturates Screen (Negative) U Tricyclic Antidepress (Negative) Ur Phencyclidine Scrn (Negative) Ur Amphetamines Screen (Negative) U Methamphetamines Scrn (Negative) Ur MDMA Scrn (Ecstasy) (Negative) U Benzodiazepines Scrn (Negative) Urine Cocaine Screen (Negative) U Marijuana (THC) Screen (Negative) Ethyl Alcohol ( - 10) mg/dL Ketones 0.40 H (<0.27) mmol/L COVID-19 PCR (Negative) 10/24/20 10/24/20 10/24/20 Range/Units 11:35 13:40 14:00 WBC (4.5-11.0) X10^3/uL RBC (4.0-5.2) X10^6/uL Hgb (12.0-16.0) g/dL Hct (36-46) % MCV (80-100) fL MCH (26-34) PG MCHC (30-36) % RDW (11.6-14.8) % Plt Count (150-400) X10^3/uL Neut % (Auto) (50-75) % Lymph % (Auto) (25-40) % [place] % (Auto) (3-14) % Eos % (Auto) (2-4) % Baso % (Auto) (0-2) % Neut # (Auto) (4003-2461) /uL Lymph # (Auto) (5081-0494) /uL [place] # (Auto) (0-900) /uL Eos # (Auto) (0-450) /uL Baso # (Auto) (0-100) /uL VBG pH (7.33-7.43) VBG pCO2 (45-50) mmHg VBG pO2 (35-45) mmHg VBG HCO3 (23-28) mmol/L VBG Total CO2 (24-29) mmol/L VBG O2 Saturation (70-75) % VBG Base Excess (0-4) mmol/L Sodium (137-145) mmol/L Potassium (3.4-5.1) mmol/L Chloride (98-107) mmol/L Carbon Dioxide (22-32) mmol/L BUN (7-17) mg/dL Creatinine (0.52-1.04) mg/dL Estimated GFR (>60) mL/min BUN/Creatinine Ratio (6-22) Glucose (80-110) mg/dL Lactate (0.7-2.1) mmol/L Calcium (8.4-10.2) mg/dL Total Bilirubin (0.2-1.3) mg/dL AST (14-36) IU/L ALT (<35) IU/L Alkaline Phosphatase (38-126) U/L Total Creatine Kinase (30-135) U/L CK-MB (CK-2) (<2.37) ng/mL CK-MB (CK-2) Rel Index (1.5-5.0) % Troponin I (0.01-0.034) ng/mL Total Protein (6.3-8.2) g/dL Albumin (3.5-5.0) g/dL Globulin (1.7-4.1) g/dL Albumin/Globulin Ratio (1.0-2.8) Lipase (23-300) U/L Procalcitonin 0.11 (<0.5) ng/mL Prolactin 11.9 (3.0-18.6) ng/mL U Opiates 300ng/mL cut Negative (Negative) Ur Oxycodone Screen Negative (Negative) Urine Methadone Screen Negative (Negative) Ur Barbiturates Screen Negative (Negative) U Tricyclic Antidepress Negative (Negative) Ur Phencyclidine Scrn Negative (Negative) Ur Amphetamines Screen Negative (Negative) U Methamphetamines Scrn Negative (Negative) Ur MDMA Scrn (Ecstasy) Negative (Negative) U Benzodiazepines Scrn Positive H (Negative) Urine Cocaine Screen Negative (Negative) U Marijuana (THC) Screen Negative (Negative) Ethyl Alcohol ( - 10) mg/dL Ketones (<0.27) mmol/L COVID-19 PCR (Negative) 10/24/20 10/24/20 10/24/20 Range/Units 14:02 15:04 16:25 WBC (4.5-11.0) X10^3/uL RBC (4.0-5.2) X10^6/uL Hgb (12.0-16.0) g/dL Hct (36-46) % MCV (80-100) fL MCH (26-34) PG MCHC (30-36) % RDW (11.6-14.8) % Plt Count (150-400) X10^3/uL Neut % (Auto) (50-75) % Lymph % (Auto) (25-40) % [place] % (Auto) (3-14) % Eos % (Auto) (2-4) % Baso % (Auto) (0-2) % Neut # (Auto) (0766-3114) /uL Lymph # (Auto) (4230-6029) /uL [place] # (Auto) (0-900) /uL Eos # (Auto) (0-450) /uL Baso # (Auto) (0-100) /uL VBG pH 7.37 (7.33-7.43) VBG pCO2 37.6 L (45-50) mmHg VBG pO2 52 H (35-45) mmHg VBG HCO3 22 L (23-28) mmol/L VBG Total CO2 23 L (24-29) mmol/L VBG O2 Saturation 86 H (70-75) % VBG Base Excess -4.0 L (0-4) mmol/L Sodium (137-145) mmol/L Potassium (3.4-5.1) mmol/L Chloride (98-107) mmol/L Carbon Dioxide (22-32) mmol/L BUN (7-17) mg/dL Creatinine (0.52-1.04) mg/dL Estimated GFR (>60) mL/min BUN/Creatinine Ratio (6-22) Glucose (80-110) mg/dL Lactate 5.5 H* (0.7-2.1) mmol/L Calcium (8.4-10.2) mg/dL Total Bilirubin (0.2-1.3) mg/dL AST (14-36) IU/L ALT (<35) IU/L Alkaline Phosphatase (38-126) U/L Total Creatine Kinase (30-135) U/L CK-MB (CK-2) (<2.37) ng/mL CK-MB (CK-2) Rel Index (1.5-5.0) % Troponin I (0.01-0.034) ng/mL Total Protein (6.3-8.2) g/dL Albumin (3.5-5.0) g/dL Globulin (1.7-4.1) g/dL Albumin/Globulin Ratio (1.0-2.8) Lipase (23-300) U/L Procalcitonin (<0.5) ng/mL Prolactin (3.0-18.6) ng/mL U Opiates 300ng/mL cut (Negative) Ur Oxycodone Screen (Negative) Urine Methadone Screen (Negative) Ur Barbiturates Screen (Negative) U Tricyclic Antidepress (Negative) Ur Phencyclidine Scrn (Negative) Ur Amphetamines Screen (Negative) U Methamphetamines Scrn (Negative) Ur MDMA Scrn (Ecstasy) (Negative) U Benzodiazepines Scrn (Negative) Urine Cocaine Screen (Negative) U Marijuana (THC) Screen (Negative) Ethyl Alcohol ( - 10) mg/dL Ketones (<0.27) mmol/L COVID-19 PCR Negative (Negative) Urine Dip Bedside Urine Glucose 250 mg/dl Bedside Urine Bilirubin - Negative Bedside Urine Ketone + 15 Urine Specific [place] 1.030 Bedside Urine Occult Blood - Negative Bedside Urine pH 6.0 Bedside Urine Protein +/- 15 Bedside Urine Urobilinogen - Negative Bedside Urine Nitrite - Negative Bedside Urine Leukocytes - Negative Esterase Discharge Plan Departure Patient Disposition: Admitted as Observation Clinical Impression: Elevated lactic acid level Alcohol withdrawal Qualifiers: Complication of substance-induced condition: uncomplicated Qualified Code(s): F10.230 - Alcohol dependence with withdrawal, uncomplicated Abdominal pain Qualifiers: Abdominal location: unspecified location Qualified Code(s): R10.9 - Unspecified abdominal pain Admit Date/Time: 10/24/20 16:46 Admit Provider: Mara Vasquez
[2020-10-24] MEDS: LORazepam 2 MG/ML INJ 0.5 MG IV ×2 (12:49→14:54)
--- NOTE | 2020-10-24 12:52 | DI.CT.S_ITS ---
PROCEDURE: CT ABDOMEN PELVIS W CON INDICATIONS: LLQ, epigastric pain. hx of diverticulitis, elevated LFTs TECHNIQUE: After the administration of intravenous contrast, 5 mm thick sections acquired from the diaphragm to the symphysis. 5 mm coronal and sagittal reformats were acquired. For radiation dose reduction, the following was used: automated exposure control, adjustment of mA and/or kV according to patient size. COMPARISON: None. FINDINGS: Image quality: Excellent. ABDOMEN: Lung bases: Lung bases are clear. Heart size is normal. Solid organs: Liver is normal in size and enhancement. There is prominent fatty infiltration within the liver parenchyma. Gallbladder appears normal . Biliary system is non dilated. Pancreas enhances normally. Spleen is normal in size and enhancement. No adrenal nodules. Kidneys demonstrate normal size and enhancement, without hydronephrosis. Peritoneum and bowel: Bowel loops demonstrate normal wall thickness and caliber. No free fluid or air. Nodes and vessels: No retroperitoneal or mesenteric adenopathy by size criteria. Aorta and inferior vena cava are normal in size. Miscellaneous: No ventral hernias. PELVIS: Genitourinary: Bladder wall thickness is normal. Miscellaneous: No inguinal hernias or adenopathy. Extensive sigmoid diverticulosis, without acute diverticulitis visualized. Bones: No suspicious bony lesions. No vertebral body compression fractures. IMPRESSION: Prominent hepatic steatosis, no focal liver lesion seen. No ascites or varices are found. Relatively prominent sigmoid diverticulosis is present, without acute diverticulitis found. A definite source of new left lower quadrant pain is not identified. Dictated by: Hector Wong M.D. on 10/24/2020 at 13:24 Approved by: Hector Wong M.D. on 10/24/2020 at 13:25
[2020-10-24 12:59] LABS: Lipase 86 U/L (23-300)
--- NOTE | 2020-10-24 13:11 | CM.SWNOTE ---
SECONDARY SPECIAL EDUCATION TEACHER note SECONDARY SPECIAL EDUCATION TEACHER consult requested for patient. Patient is a 60 y/o female who presents to ED today for ETOH withdrawal. Patient reports she recently discontinued ETOH use, felt very sick previous night, and came to ED at request of PCP. Patient reports she has been in [place] for 5 days and lives in [place] with her . 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 Patient reports that COVID restrictions have made it more difficult for her to abstain for ETOH. Patient reports she is planning on returning to [place] tomorrow with and is considering both outpatient and inpatient options for treatment. Patient reports she will be meeting with PCP upon her return. Patient denies SI/HI, and states she feels safe with . Patient reports has been helpful while patient works to achieve sobriety in the past. Patient denies other needs from SECONDARY SPECIAL EDUCATION TEACHER at this time. SECONDARY SPECIAL EDUCATION TEACHER updates ED provider SANTOSH Chatterjee. Pl: Patient to continue to receive care while in ED and follow up with PCP upon return to [place]. ALISHA Lambert
[2020-10-24 13:13] LABS: Lactate (Lactic Acid) 7.9 mmol/L (0.7-2.1)
[2020-10-24 13:14] LABS: Creatine Kinase 160 U/L (30-135)
[2020-10-24 13:27] LABS: Troponin I < 0.012 ng/mL (0.01-0.034)
[2020-10-24 13:29] LABS: CKMB % Relative Index 0.9 % (1.5-5.0)
--- NOTE | 2020-10-24 13:47 | DI.RAD.S_ITS ---
PROCEDURE: XR CHEST 1V INDICATIONS: elevated lactate, n/v TECHNIQUE: One view of the chest was acquired. COMPARISON: None. FINDINGS: Surgical changes and devices: None. Lungs and pleura: Lungs are clear. No pleural effusions or pneumothorax. Mediastinum: Mediastinal contours appear normal. Heart size is normal. Bones and chest wall: No suspicious bony lesions. Overlying soft tissues appear unremarkable. IMPRESSION: No acute cardiopulmonary abnormality. Dictated by: Lázaro Dumont M.D. on 10/24/2020 at 13:21 Approved by: Lázaro Dumont M.D. on 10/24/2020 at 13:22
[2020-10-24 13:48] LABS: Ur Creatinine Normal (Normal); Ur Specific Gravity Normal (Normal); Urine Tetrahydrocannabinol Negative (Negative); Urine pH Normal (Normal)
[2020-10-24 13:49] LABS: UR Morphine/Opiate cutoff 300 Negative (Negative); Urine Amphetamines Negative (Negative); Urine Barbiturates Negative (Negative); Urine Benzodiazepines Positive (Negative); Urine Cocaine Negative (Negative); Urine MDMA Negative (Negative); Urine Methadone Negative (Negative); Urine Methamphetamines Negative (Negative); Urine Oxycodone Negative (Negative); Urine Phencyclidine Negative (Negative); Urine Tricyclic Antidepressant Negative (Negative)
[2020-10-24] MEDS: PIPERACILLIN-TAZO 4.5 GM/100 ML FROZ.PIGGY IV (13:57)
--- NOTE | 2020-10-24 14:15 | DI.US.S_ITS ---
PROCEDURE: US ABDOMEN LIMITED INDICATIONS: EPIGASTRIC PAIN; ELEVATED LACTATE TECHNIQUE: Real-time scanning was performed of the abdominal and retroperitoneal organs, with image documentation. COMPARISON: None. FINDINGS: Liver: Liver is enlarged with diffusely increased liver parenchymal echotexture. Liver measures 22 cm in length. Gallbladder: There is no gallstone. Go no gallbladder wall thickening or pericholecystic fluid. No sonographic King sign. Biliary ducts: Intrahepatic bile ducts are non-dilated. Extrahepatic bile duct caliber measures 5.4 mm. Normal is 6-7 mm or less in diameter, or 10 mm or less post-cholecystectomy. Pancreas: Visualized portions of the pancreas are sonographically normal. IMPRESSION: 1. Hepatomegaly and hepatic steatosis. No discrete hepatic lesion. 2. Normal gallbladder. No biliary ductal dilatation. Dictated by: Saul Greene M.D. on 10/24/2020 at 14:28 Approved by: Saul Greene M.D. on 10/24/2020 at 14:29
[2020-10-24 14:27] LABS: COVID19 -Nasal RAPID Negative (Negative)
[2020-10-24 14:42] LABS: Procalcitonin 0.11 ng/mL (<0.5)
[2020-10-24 14:50] LABS: Reflexed Lactate in 2 Hours Y
[2020-10-24] MEDS: SODIUM CHLORIDE 0.9% 250 ML 999 ML IV (14:50)
[2020-10-24] MEDS: KETOROLAC 60 MG/2 ML VIAL 15 MG IV (14:55)
[2020-10-24] MEDS: HYDROMORPHONE 0.5 MG INJ IV (15:41)
[2020-10-24 15:46] LABS: Lactate 2HR (Lactic Acid Rflx) 5.5 mmol/L (0.7-2.1)
[2020-10-24] MEDS: SODIUM CHLORIDE 0.9% 1,000 ML 125 ML IV (15:49)
[2020-10-24 16:43] LABS: HCO3 VBG 22 mmol/L (23-28); PCO2 VBG 37.6 mmHg (45-50); PO2 VBG 52 mmHg (35-45); Total CO2 VBG 23 mmol/L (24-29); pH VBG 7.37 (7.33-7.43)
[2020-10-24 16:44] LABS: Oxygen Saturation VBG 86 % (70-75)
--- NOTE | 2020-10-24 17:08 | P.CONS_ITS ---
History of Present Illness Consult details Date Patient Seen: 10/24/20 Time Patient Seen: 17:08 Chief complaint: alcohol withdrawl x4 days Narrative: 60-year-old woman seen in the emergency room in consultation for abdominal pain. She normally drinks one pint of hard liquor per day tried to stop and subsequently became weak, tremulous and developed left lower quadrant abdominal pain. In the emergency department she is afebrile, mildly tachycardic normal tentative. Laboratory studies were notable for lactic acid 7.8 which improved to 5.5 with fluid resuscitation, AST 239 ALT 247 alk phosphatase 162, TB 0.7. CT abdomen pelvis normal with the exception of hepatic steatosis and diverticulosis. Right upper quadrant ultrasound essentially normal. Currently she has no abdominal pain no nausea or vomiting. Meds Home Medications and Allergies Home Medications Medication Instructions Recorded Confirmed Type bupropion HCl 300 mg 24 hr tablet, 300 mg PO QAM 09/18/20 09/18/20 History extended release cyclobenzaprine 10 mg tablet 10 mg PO BEDTIME #30 tab 09/18/20 09/18/20 Rx lisinopril 2.5 mg tablet 2.5 mg PO DAILY 09/18/20 09/18/20 History metformin 500 mg tablet 500 mg PO BID tab 09/18/20 09/18/20 History omeprazole magnesium 20 mg 20 mg PO DAILY 09/18/20 09/18/20 History tablet,delayed release Allergies Allergy/AdvReac Type Severity Reaction Status Date / Time ciprofloxacin [From Cipro] AdvReac GI upset Verified 10/24/20 11:11 morphine AdvReac headache Verified 10/24/20 11:11 Review of Systems Review of Systems Narrative: A 10 point review of systems is negative except as noted in the HPI Exam Vital Signs (past 8 hours): - 10/24/20 11:09 10/24/20 13:35 10/24/20 13:42 Temperature 97.9 F Pulse Rate 124 H 109 H Respiratory Rate 15 Blood Pressure 169/91 H 136/73 Pulse Oximetry 97 96 97 10/24/20 14:00 10/24/20 14:30 10/24/20 15:00 Temperature Pulse Rate 110 H 112 H 110 H Respiratory Rate Blood Pressure 139/76 124/72 133/69 Pulse Oximetry 97 97 98 10/24/20 15:30 Temperature Pulse Rate 109 H Respiratory Rate Blood Pressure 123/69 Pulse Oximetry 98 Oxygen Delivery Method Room Air Narrative Exam Narrative: General-no acute distress, adult woman HEENT-moist mucous membranes, no scleral icterus Neck-supple, no lymphadenopathy Chest- non labored respirations, clear to auscultation bilaterally Cardiac-regular rate no peripheral edema Abdomen-soft, nontender, non distended Extremities-warm, well perfused Neurological-alert and oriented, no focal deficits Objective Labs Result Diagrams: 10/24/20 11:35 10/24/20 11:35 Labs: Laboratory Results - last 24 hr 10/24/20 10/24/20 10/24/20 11:35 11:35 11:35 WBC 6.9 RBC 4.09 Hgb 12.1 Hct 37.4 MCV 91.3 MCH 29.7 MCHC 32.5 RDW 16.2 H Plt Count 277 Neut % (Auto) 73.5 Lymph % (Auto) 14.7 L [place] % (Auto) 11.0 Eos % (Auto) 0.3 L Baso % (Auto) 0.5 Neut # (Auto) 5000 Lymph # (Auto) 1000 L [place] # (Auto) 800 Eos # (Auto) 0 Baso # (Auto) 0 VBG pH VBG pCO2 VBG pO2 VBG HCO3 VBG Total CO2 VBG O2 Saturation VBG Base Excess Sodium 137 Potassium 3.8 Chloride 100 Carbon Dioxide 16 L BUN 18 H Creatinine 0.68 Estimated GFR > 60.0 BUN/Creatinine Ratio 26.5 H Glucose 232 H Lactate 7.9 H* Calcium 9.3 Total Bilirubin 0.7 AST 239 H ALT 247 H Alkaline Phosphatase 162 H Total Creatine Kinase CK-MB (CK-2) CK-MB (CK-2) Rel Index Troponin I Total Protein 8.3 H Albumin 4.7 Globulin 3.6 Albumin/Globulin Ratio 1.3 Lipase Procalcitonin U Opiates 300ng/mL cut Ur Oxycodone Screen Urine Methadone Screen Ur Barbiturates Screen U Tricyclic Antidepress Ur Phencyclidine Scrn Ur Amphetamines Screen U Methamphetamines Scrn Ur MDMA Scrn (Ecstasy) U Benzodiazepines Scrn Urine Cocaine Screen U Marijuana (THC) Screen Ethyl Alcohol 85 H Ketones COVID-19 PCR 10/24/20 10/24/20 10/24/20 11:35 11:35 11:35 WBC RBC Hgb Hct MCV MCH MCHC RDW Plt Count Neut % (Auto) Lymph % (Auto) [place] % (Auto) Eos % (Auto) Baso % (Auto) Neut # (Auto) Lymph # (Auto) [place] # (Auto) Eos # (Auto) Baso # (Auto) VBG pH VBG pCO2 VBG pO2 VBG HCO3 VBG Total CO2 VBG O2 Saturation VBG Base Excess Sodium Potassium Chloride Carbon Dioxide BUN Creatinine Estimated GFR BUN/Creatinine Ratio Glucose Lactate Calcium Total Bilirubin AST ALT Alkaline Phosphatase Total Creatine Kinase 160 H CK-MB (CK-2) 1.40 CK-MB (CK-2) Rel Index 0.9 L Troponin I < 0.012 Total Protein Albumin Globulin Albumin/Globulin Ratio Lipase 86 Procalcitonin U Opiates 300ng/mL cut Ur Oxycodone Screen Urine Methadone Screen Ur Barbiturates Screen U Tricyclic Antidepress Ur Phencyclidine Scrn Ur Amphetamines Screen U Methamphetamines Scrn Ur MDMA Scrn (Ecstasy) U Benzodiazepines Scrn Urine Cocaine Screen U Marijuana (THC) Screen Ethyl Alcohol Ketones 0.40 H COVID-19 PCR 10/24/20 10/24/20 10/24/20 13:40 14:00 14:02 WBC RBC Hgb Hct MCV MCH MCHC RDW Plt Count Neut % (Auto) Lymph % (Auto) [place] % (Auto) Eos % (Auto) Baso % (Auto) Neut # (Auto) Lymph # (Auto) [place] # (Auto) Eos # (Auto) Baso # (Auto) VBG pH VBG pCO2 VBG pO2 VBG HCO3 VBG Total CO2 VBG O2 Saturation VBG Base Excess Sodium Potassium Chloride Carbon Dioxide BUN Creatinine Estimated GFR BUN/Creatinine Ratio Glucose Lactate Calcium Total Bilirubin AST ALT Alkaline Phosphatase Total Creatine Kinase CK-MB (CK-2) CK-MB (CK-2) Rel Index Troponin I Total Protein Albumin Globulin Albumin/Globulin Ratio Lipase Procalcitonin 0.11 U Opiates 300ng/mL cut Negative Ur Oxycodone Screen Negative Urine Methadone Screen Negative Ur Barbiturates Screen Negative U Tricyclic Antidepress Negative Ur Phencyclidine Scrn Negative Ur Amphetamines Screen Negative U Methamphetamines Scrn Negative Ur MDMA Scrn (Ecstasy) Negative U Benzodiazepines Scrn Positive H Urine Cocaine Screen Negative U Marijuana (THC) Screen Negative Ethyl Alcohol Ketones COVID-19 PCR Negative 12/03/20 12/03/20 15:04 16:25 WBC RBC Hgb Hct MCV MCH MCHC RDW Plt Count Neut % (Auto) Lymph % (Auto) [place] % (Auto) Eos % (Auto) Baso % (Auto) Neut # (Auto) Lymph # (Auto) [place] # (Auto) Eos # (Auto) Baso # (Auto) VBG pH 7.37 VBG pCO2 37.6 L VBG pO2 52 H VBG HCO3 22 L VBG Total CO2 23 L VBG O2 Saturation 86 H VBG Base Excess -4.0 L Sodium Potassium Chloride Carbon Dioxide BUN Creatinine Estimated GFR BUN/Creatinine Ratio Glucose Lactate 5.5 H* Calcium Total Bilirubin AST ALT Alkaline Phosphatase Total Creatine Kinase CK-MB (CK-2) CK-MB (CK-2) Rel Index Troponin I Total Protein Albumin Globulin Albumin/Globulin Ratio Lipase Procalcitonin U Opiates 300ng/mL cut Ur Oxycodone Screen Urine Methadone Screen Ur Barbiturates Screen U Tricyclic Antidepress Ur Phencyclidine Scrn Ur Amphetamines Screen U Methamphetamines Scrn Ur MDMA Scrn (Ecstasy) U Benzodiazepines Scrn Urine Cocaine Screen U Marijuana (THC) Screen Ethyl Alcohol Ketones COVID-19 PCR Assessment & Plan Assessment & Plan narrative: 60-year-old woman with acute alcohol withdrawal and left lower quadrant abdominal pain. Laboratory studies and imaging are reviewed. There is no acute abnormalities on imaging, her abdominal pain has resolved. Laboratory studies were notable for AST 239, ALT 247, Alk Phos 162, TB 0.7 and elevated lactic acid which is correcting with fluid resuscitation. No acute surgical issues identified. Recommend hospital admission to the medical service for observation and management of her alcohol withdrawal. Plea se call if questions.
[2020-10-24 17:53] LABS: Lactate (Lactic Acid) 3.5 mmol/L (0.7-2.1)
[2020-10-24 18:06] LABS: Prolactin 11.9 ng/mL (3.0-18.6)
[2020-10-24] MEDS: chlordiazePOXIDE 25 MG CAPSULE 50 MG PO (18:47)
[2020-10-24] MEDS: PANTOPRAZOLE 40 MG VIAL IV (18:54)
[2020-10-24 19:32] LABS: Reflexed Lactate in 2 Hours Y
[2020-10-24 20:04] LABS: Lactate 2HR (Lactic Acid Rflx) 3.9 mmol/L (0.7-2.1)
[2020-10-24 20:26] LABS: Magnesium 1.3 mg/dL (1.6-2.3)
--- NOTE | 2020-10-24 20:54 | P.HP_ITS ---
History of Present Illness History of Present Illness Date Patient Seen: 10/24/20 Time Patient Seen: 20:02 Chief complaint: alcohol withdrawl x4 days Narrative: Ms. Elisa Gómez is a nonsmoking 60-year-old female with back medical history alcohol dependence, diabetes, GERD, diverticulosis and depression who presents to the ER with complaints of epigastric pain and left lower quadrant pain. The patient states her epigastric pain started yesterday and she has had the left lower quadrant pain for 2-3 weeks which is consistent with previous diverticular discomfort. She reports associated chills, diaphoresis, nausea and vomiting once yesterday. The patient also describes more frequent loose stools but denies hematemesis, hematochezia or melena. The patient has been trying to stop drinking. She started drinking again after 2 and half years of sobriety that she attributes to COVID pandemic endorses drinking a pt of liquor daily since August. The patient's last drink was at 9:00 a.m. this morning. The patient lives in [facility] and is here staying on her boat with her . She receives her care through [facility]. She reports no other recent complaints of cold or flu symptoms and no known COVID-19 exposures. She denies headaches or dizziness and has not visual changes nasal congestion or sore throat. She denies complaints of chest pain or palpitations, shortness of breath cough or wheezing. Has abdominal pain as abov e with more frequent loose stools.. She denies urinary frequency. She reports not routinely checking blood sugars for the last several months and continues to take her metformin 1000 mg twice daily. Upon arrival to the ER the patient is afebrile with temperature 97.9?, tachycardic at 124, blood pressure 169/91, respirations of 15 saturating 97% on room air. Imaging is obtained with a CT of the abdomen and pelvis which identifies prominent hepatic steatosis without lesions and no ascites. Ul trasound of the abdomen finds hepatomegaly again noting steatosis with a normal gallbladder no ductal dilatation. Chest x-ray finds no acute cardiopulmonary abnormalities. Twelve lead EKG is obtained finding sinus tachycardia at a rate of 111 without ectopy or block, no ST or T-wave changes no evidence of infarct. On laboratory analysis the patient has white count of 6.9 with no shift, hemoglobin of 12.1, hematocrit of 37.4 and platelets of 277. His sodium 137 and potassium of 3.8. Her BUN is 18 with a creatinine of 0.64. Her nonfasting glucose is 232. On liver functions he has a total bilirubin of 0.7 with an AST of 239, ALT of 247 and alkaline phosphatase of 162. Ketones are 0.40. She has a procalcitonin of 0.11 and a lactic acid initially at 7.9 decreased to 5.5 and then 23.5 with fluids in the ER. VBG shows a pH of 7.37, bicarb of 22 with base excess -4. On urinalysis she has a PICC pH of 6.0 with specific gravity of 1.030, positive ketones and negative for leukocyte esterase or nitrates. In the ER the patient received Ativan x2, Toradol, Dilaudid, Protonix and the Zosyn 3.375 g x 1 in addition to 3 L normal saline normal saline 200 cc/hour. The patient is admitted to the hospitalist service for severe lactic acidosis secondary to dehydration and uncontrolled diabetes. Patient History Medical History (Updated 10/24/20 @ 21:12 by SANTOSH Gaspar) Acid reflux Alcoholism Depression Diabetes Diverticulitis Surgical History (Updated 10/24/20 @ 21:12 by SANTOSH Gaspar) History of knee surgery History of removal of ovarian cyst Family & Social History Family History (Updated 10/24/20 @ 21:13 by SANTOSH Gaspar) Father No significant medical problems Mother Hypertension Daughter No significant medical problems Social History: household members spouse Prior Living Arrangements House Safety & Behavioral: Feels Safe in Current Yes Environment Been Physically Hurt or No Threatened By a Person Suicidal Ideation Description None Suicide Plan Description No Plan Tobacco & Substance use: Smoking Status Former smoker alcohol intake current alcohol intake frequency 3 or more drinks per day Substance Use Type does not use Meds Home Medications and Allergies Home Medications Medication Instructions Recorded Confirmed Type bupropion HCl 300 mg 24 hr tablet, 300 mg PO QAM 09/18/20 10/24/20 History extended release lisinopril 2.5 mg tablet 2.5 mg PO DAILY 09/18/20 10/24/20 History metformin 500 mg tablet 1,000 mg PO BID tab 09/18/20 10/24/20 History omeprazole magnesium 20 mg 20 mg PO DAILY 09/18/20 10/24/20 History tablet,delayed release Allergies Allergy/AdvReac Type Severity Reaction Status Date / Time ciprofloxacin [From Cipro] AdvReac GI upset Verified 10/24/20 11:11 morphine AdvReac headache Verified 10/24/20 11:11 Review of Systems Review of Systems ROS: Yes All systems reviewed with the patient and are negative except as otherwise documented Exam Vital Signs (past 8 hours): - 10/24/20 13:35 10/24/20 13:42 10/24/20 14:00 Temperature Pulse Rate 109 H 110 H Respiratory Rate Blood Pressure 136/73 139/76 Pulse Oximetry 96 97 97 10/24/20 14:30 10/24/20 15:00 10/24/20 15:30 Temperature Pulse Rate 112 H 110 H 109 H Respiratory Rate Blood Pressure 124/72 133/69 123/69 Pulse Oximetry 97 98 98 10/24/20 16:00 10/24/20 16:30 10/24/20 17:00 Temperature Pulse Rate 105 H 108 H 117 H Respiratory Rate Blood Pressure 129/74 155/88 H 138/76 Pulse Oximetry 96 97 95 10/24/20 17:20 Temperature 97.9 F Pulse Rate 108 H Respiratory Rate 18 Blood Pressure 153/85 H Pulse Oximetry 98 Oxygen Delivery Method Room Air Narrative Exam Narrative: GENERAL APPEARANCE: well developed, overweight female lying left lateral in bed in mild discomfort. HEENT: Normocephalic, PERRLA, conjunctiva clear, EOMs intact without nystagmus, no sinus tenderness to percussion, no rhinorrhea, mucous membranes are dry and pink without lesions or exudate. NECK/THYROID: neck supple, no JVD, no carotid bruit, no thyromegaly, trachea midline. LYMPH NODES: no cervical or supraclavicular lymphadenopathy. SKIN: [place], warm and dry, no visible lesions or rashes HEART: Tachycardic rate with regular rhythm, S1-S2, no murmur, no rubs or gallops, brisk capillary refill, no edema LUNGS: clear to auscultation bilaterally, no coarseness crackles or wheezing, no cough present CHEST: Symmetrical movement, no accessory muscle use, good tidal volume. ABDOMEN: Soft, tympanitic upper quadrants, dull lower quadrants, no distension, epigastric and left lower quadrant pain on palpation without guarding or peritoneal signs, no organomegaly, no flank or suprapubic tenderness, active bowel tones. BACK: Normal curvature, nontender to palpation, no back pain on straight leg raise EXTREMITIES: moves all extremities, strength is 5/5 and symmetrical, no deformities or joint effusions. NEUROLOGIC: AAO x 3, no lateralized neurologic deficits, cranial nerves II-XII grossly intact, sensation intact to light touch, hearing grossly normal to speech. PSYCH: Quiet, short responses to questions, flat affect, cooperative with stable behavior. Objective Labs Result Diagrams: 10/24/20 11:35 10/24/20 11:35 Labs: Laboratory Results - last 24 hr 10/24/20 10/24/20 10/24/20 11:35 11:35 11:35 WBC 6.9 RBC 4.09 Hgb 12.1 Hct 37.4 MCV 91.3 MCH 29.7 MCHC 32.5 RDW 16.2 H Plt Count 277 Neut % (Auto) 73.5 Lymph % (Auto) 14.7 L [place] % (Auto) 11.0 Eos % (Auto) 0.3 L Baso % (Auto) 0.5 Neut # (Auto) 5000 Lymph # (Auto) 1000 L [place] # (Auto) 800 Eos # (Auto) 0 Baso # (Auto) 0 VBG pH VBG pCO2 VBG pO2 VBG HCO3 VBG Total CO2 VBG O2 Saturation VBG Base Excess Sodium 137 Potassium 3.8 Chloride 100 Carbon Dioxide 16 L BUN 18 H Creatinine 0.68 Estimated GFR > 60.0 BUN/Creatinine Ratio 26.5 H Glucose 232 H Lactate 7.9 H* Calcium 9.3 Magnesium Total Bilirubin 0.7 AST 239 H ALT 247 H Alkaline Phosphatase 162 H Total Creatine Kinase CK-MB (CK-2) CK-MB (CK-2) Rel Index Troponin I Total Protein 8.3 H Albumin 4.7 Globulin 3.6 Albumin/Globulin Ratio 1.3 Lipase Procalcitonin Prolactin U Opiates 300ng/mL cut Ur Oxycodone Screen Urine Methadone Screen Ur Barbiturates Screen U Tricyclic Antidepress Ur Phencyclidine Scrn Ur Amphetamines Screen U Methamphetamines Scrn Ur MDMA Scrn (Ecstasy) U Benzodiazepines Scrn Urine Cocaine Screen U Marijuana (THC) Screen Ethyl Alcohol 85 H Ketones COVID-19 PCR 10/24/20 10/24/20 10/24/20 11:35 11:35 11:35 WBC RBC Hgb Hct MCV MCH MCHC RDW Plt Count Neut % (Auto) Lymph % (Auto) Vill[place]ba % (Auto) Eos % (Auto) Baso % (Auto) Neut # (Auto) Lymph # (Auto) [place] # (Auto) Eos # (Auto) Baso # (Auto) VBG pH VBG pCO2 VBG pO2 VBG HCO3 VBG Total CO2 VBG O2 Saturation VBG Base Excess Sodium Potassium Chloride Carbon Dioxide BUN Creatinine Estimated GFR BUN/Creatinine Ratio Glucose Lactate Calcium Magnesium Total Bilirubin AST ALT Alkaline Phosphatase Total Creatine Kinase 160 H CK-MB (CK-2) 1.40 CK-MB (CK-2) Rel Index 0.9 L Troponin I < 0.012 Total Protein Albumin Globulin Albumin/Globulin Ratio Lipase 86 Procalcitonin Prolactin U Opiates 300ng/mL cut Ur Oxycodone Screen Urine Methadone Screen Ur Barbiturates Screen U Tricyclic Antidepress Ur Phencyclidine Scrn Ur Amphetamines Screen U Methamphetamines Scrn Ur MDMA Scrn (Ecstasy) U Benzodiazepines Scrn Urine Cocaine Screen U Marijuana (THC) Screen Ethyl Alcohol Ketones 0.40 H COVID-19 PCR 10/24/20 10/24/20 10/24/20 11:35 13:40 14:00 WBC RBC Hgb Hct MCV MCH MCHC RDW Plt Count Neut % (Auto) Lymph % (Auto) [place] % (Auto) Eos % (Auto) Baso % (Auto) Neut # (Auto) Lymph # (Auto) [place] # (Auto) Eos # (Auto) Baso # (Auto) VBG pH VBG pCO2 VBG pO2 VBG HCO3 VBG Total CO2 VBG O2 Saturation VBG Base Excess Sodium Potassium Chloride Carbon Dioxide BUN Creatinine Estimated GFR BUN/Creatinine Ratio Glucose Lactate Calcium Magnesium Total Bilirubin AST ALT Alkaline Phosphatase Total Creatine Kinase CK-MB (CK-2) CK-MB (CK-2) Rel Index Troponin I Total Protein Albumin Globulin Albumin/Globulin Ratio Lipase Procalcitonin 0.11 Prolactin 11.9 U Opiates 300ng/mL cut Negative Ur Oxycodone Screen Negative Urine Methadone Screen Negative Ur Barbiturates Screen Negative U Tricyclic Antidepress Negative Ur Phencyclidine Scrn Negative Ur Amphetamines Screen Negative U Methamphetamines Scrn Negative Ur MDMA Scrn (Ecstasy) Negative U Benzodiazepines Scrn Positive H Urine Cocaine Screen Negative U Marijuana (THC) Screen Negative Ethyl Alcohol Ketones COVID-19 PCR 10/24/20 10/24/20 10/24/20 14:02 15:04 16:25 WBC RBC Hgb Hct MCV MCH MCHC RDW Plt Count Neut % (Auto) Lymph % (Auto) [place] % (Auto) Eos % (Auto) Baso % (Auto) Neut # (Auto) Lymph # (Auto) [place] # (Auto) Eos # (Auto) Baso # (Auto) VBG pH 7.37 VBG pCO2 37.6 L VBG pO2 52 H VBG HCO3 22 L VBG Total CO2 23 L VBG O2 Saturation 86 H VBG Base Excess -4.0 L Sodium Potassium Chloride Carbon Dioxide BUN Creatinine Estimated GFR BUN/Creatinine Ratio Glucose Lactate 5.5 H* Calcium Magnesium Total Bilirubin AST ALT Alkaline Phosphatase Total Creatine Kinase CK-MB (CK-2) CK-MB (CK-2) Rel Index Troponin I Total Protein Albumin Globulin Albumin/Globulin Ratio Lipase Procalcitonin Prolactin U Opiates 300ng/mL cut Ur Oxycodone Screen Urine Methadone Screen Ur Barbiturates Screen U Tricyclic Antidepress Ur Phencyclidine Scrn Ur Amphetamines Screen U Methamphetamines Scrn Ur MDMA Scrn (Ecstasy) U Benzodiazepines Scrn Urine Cocaine Screen U Marijuana (THC) Screen Ethyl Alcohol Ketones COVID-19 PCR Negative 10/24/20 10/24/20 10/24/20 17:29 17:29 19:50 WBC RBC Hgb Hct MCV MCH MCHC RDW Plt Count Neut % (Auto) Lymph % (Auto) [place] % (Auto) Eos % (Auto) Baso % (Auto) Neut # (Auto) Lymph # (Auto) [place] # (Auto) Eos # (Auto) Baso # (Auto) VBG pH VBG pCO2 VBG pO2 VBG HCO3 VBG Total CO2 VBG O2 Saturation VBG Base Excess Sodium Potassium Chloride Carbon Dioxide BUN Creatinine Estimated GFR BUN/Creatinine Ratio Glucose Lactate 3.5 H 3.9 H Calcium Magnesium 1.3 L Total Bilirubin AST ALT Alkaline Phosphatase Total Creatine Kinase CK-MB (CK-2) CK-MB (CK-2) Rel Index Troponin I Total Protein Albumin Globulin Albumin/Globulin Ratio Lipase Procalcitonin Prolactin U Opiates 300ng/mL cut Ur Oxycodone Screen Urine Methadone Screen Ur Barbiturates Screen U Tricyclic Antidepress Ur Phencyclidine Scrn Ur Amphetamines Screen U Methamphetamines Scrn Ur MDMA Scrn (Ecstasy) U Benzodiazepines Scrn Urine Cocaine Screen U Marijuana (THC) Screen Ethyl Alcohol Ketones COVID-19 PCR Assessment & Plan Assessment & Plan narrative: This is a 60-year-old female patient with a past medical history significant for alcohol dependence, diabetes, GERD, di verticulosis and depression who presents to the ER with low of lower quadrant pain for 2-3 weeks consistent with prior diverticular diagnosis and 1 day of chills diaphoresis and nausea and epigastric pain. She is found to be in lactic acidosis with significant dehydration with uncontrolled diabetes in the setting of alcohol consumption. 1. Lactic acidosis, acute, present on admission, active. -upon arrival to the ER the patient has lactic acid of 7.9. VBG shows a pH of 7.37, bicarb of 22 with a base excess of -4. She is hyperglycemic with a glucose of 232, urine is negative for leukocyte esterase or nitrites and there is no evidence of infection with a normal white count with no shift and procalcitonin of 0.11. Anion gap is 21 based on admission labs. -patient's diabetic taking metformin 1000 mg twice daily however patient does not present with renal insufficiency but is significantly dehydrated. -chest x-ray finds no acute cardiopulmonary abnormalities, CT of the abdomen pelvis finds prominent hepatic steatosis but no lesions or ascites, no bowel dilation or diverticulitis and no lymphadenopathy. -patient has been consuming alcohol a pt per day of liquor stating she has been attempting to cut down in last several days. She has uncontrolled diabetes and decreased urination. -patient received 3 L of IV fluid and normal saline at 200 cc/hour in the emergency department. Serial lactates progressed from 7.9 to 5.5 to 3.5. Next lactate is pending. -will continue IV fluid at 150 cc/hour and continue to trend lactate and electrolytes. 2. Severe dehydration, acute, present on admission, active. -patient remains clinically dry in appearance with dry oral mucous membranes a fter rehydration in the emergency department. -dehydration likely multifactorial including alcohol abuse, decreased oral intake, type 2 diabetes uncontrolled with hyperglycemia taking metformin. -urine specific gravity is 1.030 and positive for ketones with serum ketones at 0.40. BUN creatinine ratio is 26.5. -the patient received 3 L of normal saline in the ER and normal saline at 200 cc/hour in the emergency department. Will continue saline 150 cc/hour. -will follow electrolytes with rehydration. 3. Diabetes type 2 non insulin-dependent uncontrolled with hyperglycemia, probable chronic, present on admission, active. -blood sugar on admission is 232. The patient reports she does not routinely check her blood sugars and has not done so for a couple months. -patient takes metformin 1000 mg twice daily which will be held due to lactic acidosis. -ordered fingerstick glucose checks a.c. and hs with low-dose correctional insulin. -will check hemoglobin A1c. -patient previously been on rosuvastatin and taken off by her primary care provider. Will obtain a lipid panel -requested dietitian to consult. 4. Abdominal pain, acute, present on admission, active -patient with new onset epigastric pain with associated nausea, diaphoresis vomiting type is 1 without hematemesis. -left lower quadrant pain for 2-3 weeks consistent with prior diverticular pain, no hematochezia or melena. -no signs of infection, afebrile, white count 6.9 without shift, troponin is 0.11. CT finds prominent hepatic steatosis without lesions or ascites or lymphadenopathy, abdominal ultrasound finds normal gallbladder without ductal dilatation. -patient received Protonix IV in the emergency room with improved epigastric symptoms. -patient is on a consistent carbohydrate heart healthy diet to be advanced as tolerated. 5. Alcohol dependence, chronic, present on admission, active. -patient states her desire to quit drinking and has done so previously with Librium through her PCP. No history of withdrawal seizures. -patient's endorses consuming 1 pt of liquor daily and her last drink was this morning. Patient currently not manifesting any withdrawal symptoms other than tachycardia. -patient started on Librium 50 mg every 8 hours. -ordered CIWA protocol, seizure precautions. -ordered lorazepam IV or p.o. per CIWA protocol. 6. Alcoholic hepatic steatosis, chronic, present on admission, active. -CT of the abdomen pelvis finds prominent hepatic steatosis without lesions and no ascites. Hepatomegaly with hepatic steatosis redemonstrated on ultrasound, gallbladder is normal and no ductal dilatation. -total bilirubin is 0.7, AST as 239, ALT 247 and alkaline phosphatase is 162. Normal creatinine at 0.68. -counseled patient on alcoholism and liver damage. -patient previously has been on rosuvastatin and taken off by her primary care provider. Will obtain a lipid panel Numbers Depression, chronic, stable. -patient denies suicidal ideation or thoughts of self-harm. -continue bupropion 300 mg extended release daily. 8. GERD, chronic, stable. -patient takes omeprazole 20 mg daily. -ordered Protonix 40 mg daily 1st dose administered in the ER. 9. Hypertension, chronic, stable. -patient with elevated blood pressure upon arrival at 169/91. -patient has been rehydrated with several L of IV fluid with improvement of blood pressure to 153/85 on admission to the inpatient unit. -will continue home regimen lisinopril 2.5 mg daily. VTE prophylaxis: Heparin IV fluid: Banana back at 150 cc/hour followed by normal saline at 125 cc per Diet: Small consistent carbohydrate, heart healthy advance as tolerated. Code status: Full code, the patient designates her to be her surrogate decision maker. The patient is admitted to the hospital for severe metabolic derangement with se elan lactic acidosis that is multifactorial requiring further treatment and monitoring. The patient is admitted as observation with expected length of stay to be less than 2 midnights. COVID-19 COVID-19 status: Negative Result date/Date tested (Pos, Neg/Pending): 10/24/20 Scores G[facility] [place] coma scale eye opening: Spontaneous [place] coma scale verbal response: Orientated [place] coma scale motor response: Obey commands [place] coma scale total score: 15
[2020-10-24] MEDS: SODIUM CHLORIDE 0.9% 500 ML 1000 ML IV (20:57)
[2020-10-24] MEDS: HEPARIN 5,000 UNIT/ML VIAL 5000 UNIT SUBCUT (21:00)
[2020-10-24] MEDS: INSULIN ASPART 100 UNIT/ML INSULN PEN SUBCUT (21:02)
[2020-10-24] MEDS: MAGNESIUM SULFATE 2 GM, FOLIC ACID 1 MG, THIAMINE 100 MG, MULTIVITAMIN 10 ML in SODIUM ... IV (21:34)
[2020-10-24 22:15] LABS: Clostridium Difficile Tox PCR Negative for C. diff
[2020-10-24 23:18] LABS: Lactate (Lactic Acid) 2.7 mmol/L (0.7-2.1)
[2020-10-24 23:19] LABS: BUN Creatinine Ratio 24.2 (6-22); Blood Urea Nitrogen 15 mg/dL (7-17); Calcium 7.7 mg/dL (8.4-10.2); Carbon Dioxide 23 mmol/L (22-32); Chloride 107 mmol/L (98-107); Estimated Glomerular Filt Rate > 60.0 mL/min (>60); Glucose 266 mg/dL (80-110); HEMOLYSIS < 15 (0-50); Phosphorous 2.5 mg/dL (2.8-4.1); Potassium 3.9 mmol/L (3.4-5.1); Sodium 134 mmol/L (137-145)
[2020-10-25 01:00] VITALS: BP 119/72; PULSE 99; RESP 20; TEMP 35.8; O2SAT 97
[2020-10-25 01:06] LABS: Reflexed Lactate in 2 Hours Y
[2020-10-25] MEDS: chlordiazePOXIDE 25 MG CAPSULE 50 MG PO ×2 (01:23→05:50)
[2020-10-25] MEDS: SODIUM CHLORIDE 0.9% 1,000 ML 125 ML IV (03:42)
[2020-10-25 05:30] LABS: Add Manual Diff / Slide Review NO; Basophils Absolute Auto 0 /uL (0-100); Basophils Percent Auto 0.5 % (0-2); Eosinophils Absolute Auto 100 /uL (0-450); Eosinophils Percent Auto 1.6 % (2-4); Hematocrit 28.8 % (36-46); Hemoglobin 9.5 g/dL (12.0-16.0); Lymphocytes Absolute Auto 1000 /uL (1100-4500); Lymphocytes Percent Auto 32.8 % (25-40); Mean Corpuscular HGB Conc 33.1 % (30-36); Mean Corpuscular Volume 90.8 fL (80-100); Monocytes Absolute Auto 300 /uL (0-900); Monocytes Percent Auto 10.4 % (3-14); Neutrophils Absolute Auto 1700 /uL (1500-7000); Neutrophils Percent Auto 54.7 % (50-75); Platelet Count 158 X10^3/uL (150-400); Red Blood Cell Count 3.18 X10^6/uL (4.0-5.2); White Blood Cell Count 3.1 X10^3/uL (4.5-11.0)
[2020-10-25 05:39] LABS: Lactate (Lactic Acid) 1.9 mmol/L (0.7-2.1); Magnesium 1.9 mg/dL (1.6-2.3)
[2020-10-25 05:41] LABS: Alanine Aminotransferase 161 IU/L (<35); Albumin 3.2 g/dL (3.5-5.0); Albumin Globulin Ratio 1.2 (1.0-2.8); Alkaline Phosphatase 112 U/L (38-126); Aspartate Aminotransferase 141 IU/L (14-36); Bilirubin Total 0.5 mg/dL (0.2-1.3); Blood Urea Nitrogen 13 mg/dL (7-17); Calcium 7.6 mg/dL (8.4-10.2); Carbon Dioxide 26 mmol/L (22-32); Chloride 106 mmol/L (98-107); Cholesterol 197 mg/dL (140-199); Estimated Glomerular Filt Rate > 60.0 mL/min (>60); Globulin 2.7 g/dL (1.7-4.1); Glucose 168 mg/dL (80-110); HDL Cholesterol 48 mg/dL (40-60); HEMOLYSIS < 15 (0-50); LDL Cholesterol Calculated 119 mg/dL (<100); Potassium 3.9 mmol/L (3.4-5.1); Sodium 135 mmol/L (137-145); Total Protein 5.9 g/dL (6.3-8.2); Triglycerides 152 mg/dL (35-150)
[2020-10-25 05:47] LABS: Hemoglobin A1C% w Est Avg Glu 7.7 % (4.0-6.0)
[2020-10-25] MEDS: PANTOPRAZOLE 20 MG TABLET 40 MG PO (05:50)
[2020-10-25 05:51] VITALS: BP 136/86; PULSE 94; RESP 20; TEMP 35.8; O2SAT 96
[2020-10-25 07:25] VITALS: BP 133/78; PULSE 96; RESP 16; TEMP 36.6; O2SAT 97
[2020-10-25] MEDS: FOLIC ACID 1 MG TABLET PO (08:07)
[2020-10-25] MEDS: MULTIVITAMIN 1 TABLET 1 TAB PO (08:07)
[2020-10-25] MEDS: buPROPion XL 150 MG TAB 300 MG PO (08:07)
[2020-10-25] MEDS: THIAMINE 100 MG TABLET PO (08:07)
[2020-10-25] MEDS: INSULIN ASPART 100 UNIT/ML INSULN PEN SUBCUT (08:09)
[2020-10-25] MEDS: lisinopriL 5 MG TABLET 2.5 MG PO (08:09)
[2020-10-25] MEDS: HEPARIN 5,000 UNIT/ML VIAL 5000 UNIT SUBCUT (08:23)
[2020-10-25 09:00] VITALS: O2SAT 96
[2020-10-25 11:15] VITALS: BP 150/78; PULSE 94; RESP 16; TEMP 36.7; O2SAT 96
[2020-10-25 11:26] LABS: Adenovirus F 40/41 Not Detected (Not Detect); Astrovirus Not Detected (Not Detect); Campylobacter Not Detected (Not Detect); Clostridium difficile toxin AB Not Detected (Not Detect); Cryptosporidium Not Detected (Not Detect); Cyclospora cayetanensis Not Detected (Not Detect); Entamoeba histolytica Not Detected (Not Detect); Enteroaggregative E.coli Not Detected (Not Detect); Enteropathogenic E.coli Not Detected (Not Detect); Enterotoxigenic E.coli It/st Not Detected (Not Detect); Giardia lamblia Not Detected (Not Detect); Norovirus GI/GII Not Detected (Not Detect); Plesiomonsa shigelloides Not Detected (Not Detect); Rotavirus A Not Detected (Not Detect); Salmonella Not Detected (Not Detect); Sapovirus Not Detected (Not Detect); Shiga-like toxin-prod E.coli Not Detected (Not Detect); Shigella/Enteroinvasive E.coli Not Detected (Not Detect); Vibrio Not Detected (Not Detect); Vibrio cholerae Not Detected (Not Detect); Yersinia enterocolitica Not Detected (Not Detect)
--- NOTE | 2020-10-25 11:38 | DIET.PN ---
Dietary Progress Note Assessment: 60y F admitted c lactic acidosis with significant dehydration and uncontrolled diabetes in context of etoh use relapse. Pt has a hx of T2DM, acid reflux, diverticulitis, and depression. Pt has hepatic steatosis. Pt has been drinking 1 pint of vodka a day since August. The past 4 days pt has been tapering down her intake. Pt had previously been sober for 2.5years, and is trying to stop drinking again. pt reports her usual diet as banana and apples sauce for breakfast, ramen for lunch, and choosing a variety of dinners(pt didnt elaborate). Pt says that she has been eating a little less since her drinking has increased. Pt currently stay on a boat but has access to refrigerator, kitchen and adequate food storage. Pt is from [place] and will return back when she is discharged from the hospital. Pt reports that her A1c has been increasing over time from 6.8 to 7.3 and her last lab before admission was 7.6. Pt hasn't been checking her blood sugars regularly for the past couple months but says when she has checked they are typically between 140 and 160. Pt occasionally walks around the [facility]. Previously pt was exercising to reduce stress but has lost the practice recently. HT: 162.56cm WT:83.4kg BMI:31.6 Labs: A1c: 7.7H BH on admit AST:239H on admit, 141H today ALT: 247H on admit, 161H today Lactate: 7.91H MNA:14 Dwayne:22 Nutrition Diagnosis: Limited adherence to nutrition-related recommendations r/t high alcohol consumption aeb pt drinking drinking 1 pint of alcohol a day, pt reporting an unbalanced diet higher in CHO, pt dx of hepatic steatosis, and pt reporting that she is no longer working out regularly. Interventions: 1. Reinforced pts decision to quit drinking and the positive effect it will have on her liver. 2. Discussed ways to return to a balanced, consistent diet as she gives up alcohol. Provided AND handout to reinforce education. 3. Incorporate physical activity as a healthy stress reduction technique. Pt reports that this was one of her ways to relieve stress previously. Pt is currently going on walks sometimes, encourage pt to do this more frequently. Diet Order:CCD
--- NOTE | 2020-10-25 11:59 | PM.DS.1 ---
History of Present Illness History of Present Illness Date Patient Seen: 10/24/20 Chief complaint: alcohol withdrawl x4 days Narrative: Written by Amilcar FROST: Ms. Elisa Gómez is a nonsmoking 60-year-old female with back medical history alcohol dependence, diabetes, GERD, diverticulosis and depression who presents to the ER with complaints of epigastric pain and left lower quadrant pain. The patient states her epigastric pain started yesterday and she has had the left lower quadrant pain for 2-3 weeks which is consistent with previous diverticular discomfort. She reports associated chills, diaphoresis, nausea and vomiting once yesterday. The patient also describes more frequent loose stools but denies hematemesis, hematochezia or melena. The patient has been trying to stop drinking. She started drinking again after 2 and half years of sobriety that she attributes to COVID pandemic endorses drinking a pt of liquor daily since August. The patient's last drink was at 9:00 a.m. this morning. The patient lives in [facility] and is here staying on her boat with her . She receives her care through [place]. She reports no other recent complaints of cold or flu symptoms and no known COVID-19 exposures. She denies headaches or dizziness and has not visual changes nasal congestion or sore throat. She denies complaints of chest pain or palpitations, shortness of breath cough or wheezing. Has abdominal pain as above with more frequent loose stools.. She denies urinary frequency. She reports not routinely checking blood sugars for the last several months and continues to take her metformin 1000 mg twice daily. Upon arrival to the ER the patient is afebrile with temperature 97.9?, tachycardic at 124, blood pressure 169/91, respirations of 15 saturating 97% on room air. Imaging is obtained with a CT of the abdomen and pelvis which identifies prominent hepatic steatosis without lesions and no ascites. Ultrasound of the abdomen finds hepatomegaly again noting steatosis with a normal gallbladder no ductal dilatation. Chest x-ray finds no acute cardiopulmonary abnormalities. Twelve lead EKG is obtained finding sinus tachycardia at a rate of 111 without ectopy or block, no ST or T-wave changes no evidence of infarct. On laboratory analysis the patient has white count of 6.9 with no shift, hemoglobin of 12.1, hematocrit of 37.4 and platelets of 277. His sodium 137 and potassium of 3.8. Her BUN is 18 with a creatinine of 0.64. Her nonfasting glucose is 232. On liver functions he has a total bilirubin of 0.7 with an AST of 239, ALT of 247 and alkaline phosphatase of 162. Ketones are 0.40. She has a procalcitonin of 0.11 and a lactic acid initially at 7.9 decreased to 5.5 and then 23.5 with fluids in the ER. VBG shows a pH of 7.37, bicarb of 22 with base excess -4. On urinalysis she has a PICC pH of 6.0 with specific gravity of 1.030, positive ketones and negative for leukocyte esterase or nitrates. In the ER the patient received Ativan x2, Toradol, Dilaudid, Protonix and the Zosyn 3.375 g x 1 in addition to 3 L normal saline normal saline 200 cc/hour. The patient is admitted to the hospitalist service for severe lactic acidosis secondary to dehydration and uncontrolled diabetes. Discharge Providers Provider Date of admission: 10/24/20 16:46 Discharge Date: 10/25/20 Consults: 10/24/20 13:07 Consult to [facility] [place] - Digital Media Designer Stat Comment: [facility] [place] Consult: Substance Abuse Assess 10/24/20 20:14 Consult to Dietitian, Adult Routine Comment: Reason For Exam: Hepatic steatosis elevated transaminase Consult to Discharge Planning Routine Comment: Discharge provider: Mara Vasquez DO Summary Hospital Course Discharge Diagnosis: 1. Severe dehydration and lactic acidosis, present on admission. Resolved. 2. Acute abdominal pain, present on admission. Resolved. 3. Alcohol dependence with mild alcohol withdrawal, chronic, present on admission. Stable. 4. Alcohol-induced steatohepatitis, chronic, present on admission. Stable. 5. Diabetes mellitus type 2, non-insulin using, chronic, present on admission. Stable 6. Depression, chronic, present on admission. Stable. 7. GERD, chronic, present on admission. Stable. 8. Hypertension, chronic, present on admission. Stable. Hospital Course: Elisa Gómez is 60-year-old female with a past medical history significant for alcohol dependence, diabetes mellitus type 2, non-insulin using, GERD, diverticulosis and depression who presented to the ED with complaints of epigastric and left lower quadrant abdominal pain. 1. Severe dehydration and lactic acidosis, present on admission. Resolved. -Patient presented with severe dehydration and lactic acidosis secondary to excessive alcohol consumption which caused alcoholic gastritis with associated nausea and vomiting. -Initial lactic acid 7.9. Lactic acid trended down to normal 1.9 with aggressive IV fluid hydration. -Patient was mildly hyperglycemic with a glucose of 232 and slight anion gap of 21 due to dehydration rather than DKA. -No infectious etiology identified for severe dehydration and lactic acidosis including: Urinalysis negative, no leukocytosis, and negative procalcitonin. Imaging negative including: Chest x-ray did not demonstrate any acute cardiopulmonary process and CT abdomen and pelvis with contrast did not demonstrate any acute pathology with chronic prominent hepatic steatosis but no liver lesions, no ascites, no bowel dilation, diverticulosis without diverticulitis, no lymphadenopathy. -Continued equivalent home omeprazole 20 mg daily with Protonix 20 mg daily. -Received 3 L of IV fluid in ED. Continued aggressive IV fluid hydration until adequately hydrated then discontinued. -Continued to monitor electrolytes closely and replete as necessary -Continued carbohydrate consistent/heart healthy diet which patient tolerated well. 2. Acute abdominal pain, present on admission. Resolved. -Patient with new onset epigastric pain with associated nausea and vomiting without hematemesis at likely due to alcoholic gastritis. -Patient reports left lower quadrant pain for 2-3 weeks consistent with her prior diverticular pain. She denies hematochezia or melena. -No signs of infection, afebrile, white count normal 6.[address] abdomen and pelvis with contrast demonstrated hepatic steatosis without liver lesions, ascites or lymphadenopathy. Abdominal ultrasound redemonstrated hepatomegaly with hepatic steatosis. No evidence of cholecystitis and nondilated biliary tree. -Received Protonix IV in the ED with resolution of epigastric abdominal pain. Continued equivalent home omeprazole 20 mg daily with Protonix 20 mg daily. -Recommended indefinite cessation of alcohol use as below. 3. Alcohol dependence with mild alcohol withdrawal, chronic, present on admission. Stable. -Patient states her desire to quit drinking and has done so previously with Librium through her PCP. No history of delirium tremens or alcohol withdrawal seizures. -Patient's endorses consuming 1 pint of liquor daily with her last drink morning of admission. Patient currently not manifesting any withdrawal symptoms other than tachycardia. -Continued short Librium taper with 50 mg every 8 hours x 1 day, 50 mg twice daily x 1 day, 25 mg twice daily x 1 day, 25 mg daily x 1 day then stop. -Continued CIWA protocol with seizure precautions and as needed lorazepam PO or IV. Patient CIWA scores remained low last score 2. -Counseled the patient extensively on alcohol use, effects on liver and overall health. Recommended indefinite cessation of alcohol use as above. -Consulted AGRICULTURE INTERN and we appreciate her time and recommendations. 4. Alcohol-induced steatohepatitis, chronic, present on admission. Stable. -CT abdomen and pelvis with contrast demonstrated prominent hepatic steatosis without liver lesions and no ascites. -Abdominal ultrasound redemonstrated hepatomegaly with hepatic steatosis. No evidence of cholecystitis and nondilated biliary tree. -Initial LFTs: Total bilirubin 0.7, AST 239, ALT 247 and alkaline phosphatase 162. -Counseled the patient extensively on alcohol use, effects on liver and overall health. Recommended indefinite cessation of alcohol use as above. -Recommended continued follow-up with her business account specialist in [place] as an outpatient. 5. Diabetes mellitus type 2, non-insulin using, chronic, present on admission. Stable -Hemoglobin A1c 7.7 indicative of fair glycemic control. The patient reports she does not routinely check her blood sugars and has not done so for a couple months. -Held home metformin due to lactic acidosis as above and restarted at time of discharge. -Continued [facility] blood glucose checks and with low-dose correctional scale insulin. -Continued carbohydrate consistent/heart healthy diet. Consulted dietitian and we appreciate her time and recommendations. 6. Depression, chronic, present on admission. Stable. -Patient denies suicidal ideation or thoughts of self-harm. -Continued bupropion ER 300 mg daily. 7. GERD, chronic, present on admission. Stable. -Continued equivalent home omeprazole 20 mg daily with Protonix 20 mg daily. 8. Hypertension, chronic, present on admission. Stable. -Likely secondary component due to chronic alcohol use and recommended indefinite cessation of alcohol use as above. -Continued home lisinopril 2.5 mg daily. Exam Vital Signs (past 8 hours): - 10/25/20 05:51 10/25/20 07:25 10/25/20 11:15 Temperature 96.5 F L 97.9 F 98.1 F Pulse Rate 94 H 96 H 94 H Respiratory Rate 20 16 16 Blood Pressure 136/86 133/78 150/78 H Pulse Oximetry 96 97 96 Oxygen Delivery Method Room Air Oxygen Flow Rate 0 Narrative Exam Narrative: General: Middle-aged female lying in bed and in acute distress, well-developed, well-nourished, mild anxiety and tremulousness otherwise appropriately interactive HEENT: Normocephalic, atraumatic. External ears without defect. Pupils equal, round, and reactive to light. Anicteric sclerae, moist conjunctivae, and no lid lag. Oropharynx free of erythema and cobble stoning with moist mucosa. Neck: Supple with full range of motion. No jugular venous distension. No bruits. No lymphadenopathy or thyromegaly. Cardiovascular: Regular rhythm and rate without murmurs, rubs, or gallops appreciated Pulmonary: Clear to auscultation bilaterally without crackles, wheezes, or rhonchi. Normal respiratory effort with no use of accessory muscles. Abdomen: Soft, bowel sounds present, nontender, nondistended. Mild hepatomegaly. Extremities: No clubbing, cyanosis, or edema. Skin: Normal temperature, turgor, and texture; no rash, ulcers, or subcutaneous nodules appreciated. Neurological: Cranial nerves grossly intact. Psychiatric: Mildly anxious mood and affect. Alert and oriented to person, place, and time. Objective Labs Result Diagrams: 10/25/20 05:12 10/25/20 05:12 Labs: Laboratory Results - last 24 hr 10/24/20 10/24/20 10/24/20 11:35 11:35 11:35 WBC 6.9 RBC 4.09 Hgb 12.1 Hct 37.4 MCV 91.3 MCH 29.7 MCHC 32.5 RDW 16.2 H Plt Count 277 Neut % (Auto) 73.5 Lymph % (Auto) 14.7 L Mcculloch % (Auto) 11.0 Eos % (Auto) 0.3 L Baso % (Auto) 0.5 Neut # (Auto) 5000 Lymph # (Auto) 1000 L Mcculloch # (Auto) 800 Eos # (Auto) 0 Baso # (Auto) 0 VBG pH VBG pCO2 VBG pO2 VBG HCO3 VBG Total CO2 VBG O2 Saturation VBG Base Excess Sodium 137 Potassium 3.8 Chloride 100 Carbon Dioxide 16 L BUN 18 H Creatinine 0.68 Estimated GFR > 60.0 BUN/Creatinine Ratio 26.5 H Glucose 232 H Hemoglobin A1c Lactate 7.9 H* Calcium 9.3 Phosphorus Magnesium Total Bilirubin 0.7 AST 239 H ALT 247 H Alkaline Phosphatase 162 H Total Creatine Kinase CK-MB (CK-2) CK-MB (CK-2) Rel Index Troponin I Total Protein 8.3 H Albumin 4.7 Globulin 3.6 Albumin/Globulin Ratio 1.3 Triglycerides Cholesterol LDL Cholesterol, Calc HDL Cholesterol Lipase Procalcitonin Prolactin Stl C. cayetanensis PCR Stool Rotavirus (PCR) Stool Adenovirus (PCR) Stool Astrovirus (PCR) Stool Cryptosporidium PCR Stl E.coli Shiga Tox PCR St Sh/Enteroin Ecoli PCR Stool E coli O157 PCR Stl Enterotoxigenic E PCR Stool EPEC (PCR) Stl E. histolytica PCR Stool Giardia Lamblia PCR Stool Sapovirus (PCR) Stl P. shigelloides PCR St Y.enterocolitica PCR Stool Vibrio (PCR) Stl Vibrio cholerae PCR Stl Enteroaggr Ecoli PCR Stl Norovirus GI/GII PCR U Opiates 300ng/mL cut Ur Oxycodone Screen Urine Methadone Screen Ur Barbiturates Screen U Tricyclic Antidepress Ur Phencyclidine Scrn Ur Amphetamines Screen U Methamphetamines Scrn Ur MDMA Scrn (Ecstasy) U Benzodiazepines Scrn Urine Cocaine Screen U Marijuana (THC) Screen Ethyl Alcohol 85 H Ketones Campylobacter (PCR) C. difficile Tox (PCR) COVID-19 PCR Salmonella (PCR) 10/24/20 10/24/20 10/24/20 11:35 11:35 11:35 WBC RBC Hgb Hct MCV MCH MCHC RDW Plt Count Neut % (Auto) Lymph % (Auto) Mcculloch % (Auto) Eos % (Auto) Baso % (Auto) Neut # (Auto) Lymph # (Auto) M[place]ulloch # (Auto) Eos # (Auto) Baso # (Auto) VBG pH VBG pCO2 VBG pO2 VBG HCO3 VBG Total CO2 VBG O2 Saturation VBG Base Excess Sodium Potassium Chloride Carbon Dioxide BUN Creatinine Estimated GFR BUN/Creatinine Ratio Glucose Hemoglobin A1c Lactate Calcium Phosphorus Magnesium Total Bilirubin AST ALT Alkaline Phosphatase Total Creatine Kinase 160 H CK-MB (CK-2) 1.40 CK-MB (CK-2) Rel Index 0.9 L Troponin I < 0.012 Total Protein Albumin Globulin Albumin/Globulin Ratio Triglycerides Cholesterol LDL Cholesterol, Calc HDL Cholesterol Lipase 86 Procalcitonin Prolactin Stl C. cayetanensis PCR Stool Rotavirus (PCR) Stool Adenovirus (PCR) Stool Astrovirus (PCR) Stool Cryptosporidium PCR Stl E.coli Shiga Tox PCR St Sh/Enteroin Ecoli PCR Stool E coli O157 PCR Stl Enterotoxigenic E PCR Stool EPEC (PCR) Stl E. histolytica PCR Stool Giardia Lamblia PCR Stool Sapovirus (PCR) Stl P. shigelloides PCR St Y.enterocolitica PCR Stool Vibrio (PCR) Stl Vibrio cholerae PCR Stl Enteroaggr Ecoli PCR Stl Norovirus GI/GII PCR U Opiates 300ng/mL cut Ur Oxycodone Screen Urine Methadone Screen Ur Barbiturates Screen U Tricyclic Antidepress Ur Phencyclidine Scrn Ur Amphetamines Screen U Methamphetamines Scrn Ur MDMA Scrn (Ecstasy) U Benzodiazepines Scrn Urine Cocaine Screen U Marijuana (THC) Screen Ethyl Alcohol Ketones 0.40 H Campylobacter (PCR) C. difficile Tox (PCR) COVID-19 PCR Salmonella (PCR) 10/24/20 10/24/20 10/24/20 11:35 13:40 14:00 WBC RBC Hgb Hct MCV MCH MCHC RDW Plt Count Neut % (Auto) Lymph % (Auto) Mcculloch % (Auto) Eos % (Auto) Baso % (Auto) Neut # (Auto) Lymph # (Auto) M[place]ulloch # (Auto) Eos # (Auto) Baso # (Auto) VBG pH VBG pCO2 VBG pO2 VBG HCO3 VBG Total CO2 VBG O2 Saturation VBG Base Excess Sodium Potassium Chloride Carbon Dioxide BUN Creatinine Estimated GFR BUN/Creatinine Ratio Glucose Hemoglobin A1c Lactate Calcium Phosphorus Magnesium Total Bilirubin AST ALT Alkaline Phosphatase Total Creatine Kinase CK-MB (CK-2) CK-MB (CK-2) Rel Index Troponin I Total Protein Albumin Globulin Albumin/Globulin Ratio Triglycerides Cholesterol LDL Cholesterol, Calc HDL Cholesterol Lipase Procalcitonin 0.11 Prolactin 11.9 Stl C. cayetanensis PCR Stool Rotavirus (PCR) Stool Adenovirus (PCR) Stool Astrovirus (PCR) Stool Cryptosporidium PCR Stl E.coli Shiga Tox PCR St Sh/Enteroin Ecoli PCR Stool E coli O157 PCR Stl Enterotoxigenic E PCR Stool EPEC (PCR) Stl E. histolytica PCR Stool Giardia Lamblia PCR Stool Sapovirus (PCR) Stl P. shigelloides PCR St Y.enterocolitica PCR Stool Vibrio (PCR) Stl Vibrio cholerae PCR Stl Enteroaggr Ecoli PCR Stl Norovirus GI/GII PCR U Opiates 300ng/mL cut Negative Ur Oxycodone Screen Negative Urine Methadone Screen Negative Ur Barbiturates Screen Negative U Tricyclic Antidepress Negative Ur Phencyclidine Scrn Negative Ur Amphetamines Screen Negative U Methamphetamines Scrn Negative Ur MDMA Scrn (Ecstasy) Negative U Benzodiazepines Scrn Positive H Urine Cocaine Screen Negative U Marijuana (THC) Screen Negative Ethyl Alcohol Ketones Campylobacter (PCR) C. difficile Tox (PCR) COVID-19 PCR Salmonella (PCR) 10/24/20 10/24/20 10/24/20 14:02 15:04 16:25 WBC RBC Hgb Hct MCV MCH MCHC RDW Plt Count Neut % (Auto) Lymph % (Auto) Mcculloch % (Auto) Eos % (Auto) Baso % (Auto) Neut # (Auto) Lymph # (Auto) Mcculloch # (Auto) Eos # (Auto) Baso # (Auto) VBG pH 7.37 VBG pCO2 37.6 L VBG pO2 52 H VBG HCO3 22 L VBG Total CO2 23 L VBG O2 Saturation 86 H VBG Base Excess -4.0 L Sodium Potassium Chloride Carbon Dioxide BUN Creatinine Estimated GFR BUN/Creatinine Ratio Glucose Hemoglobin A1c Lactate 5.5 H* Calcium Phosphorus Magnesium Total Bilirubin AST ALT Alkaline Phosphatase Total Creatine Kinase CK-MB (CK-2) CK-MB (CK-2) Rel Index Troponin I Total Protein Albumin Globulin Albumin/Globulin Ratio Triglycerides Cholesterol LDL Cholesterol, Calc HDL Cholesterol Lipase Procalcitonin Prolactin Stl C. cayetanensis PCR Stool Rotavirus (PCR) Stool Adenovirus (PCR) Stool Astrovirus (PCR) Stool Cryptosporidium PCR Stl E.coli Shiga Tox PCR St Sh/Enteroin Ecoli PCR Stool E coli O157 PCR Stl Enterotoxigenic E PCR Stool EPEC (PCR) Stl E. histolytica PCR Stool Giardia Lamblia PCR Stool Sapovirus (PCR) Stl P. shigelloides PCR St Y.enterocolitica PCR Stool Vibrio (PCR) Stl Vibrio cholerae PCR Stl Enteroaggr Ecoli PCR Stl Norovirus GI/GII PCR U Opiates 300ng/mL cut Ur Oxycodone Screen Urine Methadone Screen Ur Barbiturates Screen U Tricyclic Antidepress Ur Phencyclidine Scrn Ur Amphetamines Screen U Methamphetamines Scrn Ur MDMA Scrn (Ecstasy) U Benzodiazepines Scrn Urine Cocaine Screen U Marijuana (THC) Screen Ethyl Alcohol Ketones Campylobacter (PCR) C. difficile Tox (PCR) COVID-19 PCR Negative Salmonella (PCR) 10/24/20 10/24/20 10/24/20 17:29 17:29 19:50 WBC RBC Hgb Hct MCV MCH MCHC RDW Plt Count Neut % (Auto) Lymph % (Auto) Mcculloch % (Auto) Eos % (Auto) Baso % (Auto) Neut # (Auto) Lymph # (Auto) M[place]ulloch # (Auto) Eos # (Auto) Baso # (Auto) VBG pH VBG pCO2 VBG pO2 VBG HCO3 VBG Total CO2 VBG O2 Saturation VBG Base Excess Sodium Potassium Chloride Carbon Dioxide BUN Creatinine Estimated GFR BUN/Creatinine Ratio Glucose Hemoglobin A1c Lactate 3.5 H 3.9 H Calcium Phosphorus Magnesium 1.3 L Total Bilirubin AST ALT Alkaline Phosphatase Total Creatine Kinase CK-MB (CK-2) CK-MB (CK-2) Rel Index Troponin I Total Protein Albumin Globulin Albumin/Globulin Ratio Triglycerides Cholesterol LDL Cholesterol, Calc HDL Cholesterol Lipase Procalcitonin Prolactin Stl C. cayetanensis PCR Stool Rotavirus (PCR) Stool Adenovirus (PCR) Stool Astrovirus (PCR) Stool Cryptosporidium PCR Stl E.coli Shiga Tox PCR St Sh/Enteroin Ecoli PCR Stool E coli O157 PCR Stl Enterotoxigenic E PCR Stool EPEC (PCR) Stl E. histolytica PCR Stool Giardia Lamblia PCR Stool Sapovirus (PCR) Stl P. shigelloides PCR St Y.enterocolitica PCR Stool Vibrio (PCR) Stl Vibrio cholerae PCR Stl Enteroaggr Ecoli PCR Stl Norovirus GI/GII PCR U Opiates 300ng/mL cut Ur Oxycodone Screen Urine Methadone Screen Ur Barbiturates Screen U Tricyclic Antidepress Ur Phencyclidine Scrn Ur Amphetamines Screen U Methamphetamines Scrn Ur MDMA Scrn (Ecstasy) U Benzodiazepines Scrn Urine Cocaine Screen U Marijuana (THC) Screen Ethyl Alcohol Ketones Campylobacter (PCR) C. difficile Tox (PCR) COVID-19 PCR Salmonella (PCR) 10/24/20 10/24/20 10/24/20 21:24 23:00 23:00 WBC RBC Hgb Hct MCV MCH MCHC RDW Plt Count Neut % (Auto) Lymph % (Auto) Mcculloch % (Auto) Eos % (Auto) Baso % (Auto) Neut # (Auto) Lymph # (Auto) M[place]ulloch # (Auto) Eos # (Auto) Baso # (Auto) VBG pH VBG pCO2 VBG pO2 VBG HCO3 VBG Total CO2 VBG O2 Saturation VBG Base Excess Sodium 134 L Potassium 3.9 Chloride 107 Carbon Dioxide 23 BUN 15 Creatinine 0.62 Estimated GFR > 60.0 BUN/Creatinine Ratio 24.2 H Glucose 266 H Hemoglobin A1c Lactate 2.7 H Calcium 7.7 L Phosphorus 2.5 L Magnesium Total Bilirubin AST ALT Alkaline Phosphatase Total Creatine Kinase CK-MB (CK-2) CK-MB (CK-2) Rel Index Troponin I Total Protein Albumin Globulin Albumin/Globulin Ratio Triglycerides Cholesterol LDL Cholesterol, Calc HDL Cholesterol Lipase Procalcitonin Prolactin Stl C. cayetanensis PCR Stool Rotavirus (PCR) Stool Adenovirus (PCR) Stool Astrovirus (PCR) Stool Cryptosporidium PCR Stl E.coli Shiga Tox PCR St Sh/Enteroin Ecoli PCR Stool E coli O157 PCR Stl Enterotoxigenic E PCR Stool EPEC (PCR) Stl E. histolytica PCR Stool Giardia Lamblia PCR Stool Sapovirus (PCR) Stl P. shigelloides PCR St Y.enterocolitica PCR Stool Vibrio (PCR) Stl Vibrio cholerae PCR Stl Enteroaggr Ecoli PCR Stl Norovirus GI/GII PCR U Opiates 300ng/mL cut Ur Oxycodone Screen Urine Methadone Screen Ur Barbiturates Screen U Tricyclic Antidepress Ur Phencyclidine Scrn Ur Amphetamines Screen U Methamphetamines Scrn Ur MDMA Scrn (Ecstasy) U Benzodiazepines Scrn Urine Cocaine Screen U Marijuana (THC) Screen Ethyl Alcohol Ketones Campylobacter (PCR) C. difficile Tox (PCR) Negative for c. diff COVID-19 PCR Salmonella (PCR) 10/25/20 10/25/20 10/25/20 05:12 05:12 05:12 WBC 3.1 L D RBC 3.18 L Hgb 9.5 L Hct 28.8 L MCV 90.8 MCH 30.0 MCHC 33.1 RDW 16.0 H Plt Count 158 Neut % (Auto) 54.7 Lymph % (Auto) 32.8 Mcculloch % (Auto) 10.4 Eos % (Auto) 1.6 L Baso % (Auto) 0.5 Neut # (Auto) 1700 Lymph # (Auto) 1000 L M[place]ulloch # (Auto) 300 Eos # (Auto) 100 Baso # (Auto) 0 VBG pH VBG pCO2 VBG pO2 VBG HCO3 VBG Total CO2 VBG O2 Saturation VBG Base Excess Sodium 135 L Potassium 3.9 Chloride 106 Carbon Dioxide 26 BUN 13 Creatinine 0.50 L Estimated GFR > 60.0 BUN/Creatinine Ratio 26.0 H Glucose 168 H Hemoglobin A1c 7.7 H Lactate Calcium 7.6 L Phosphorus Magnesium Total Bilirubin 0.5 AST 141 H ALT 161 H Alkaline Phosphatase 112 D Total Creatine Kinase CK-MB (CK-2) CK-MB (CK-2) Rel Index Troponin I Total Protein 5.9 L Albumin 3.2 L Globulin 2.7 Albumin/Globulin Ratio 1.2 Triglycerides 152 H Cholesterol 197 LDL Cholesterol, Calc 119 H HDL Cholesterol 48 Lipase Procalcitonin Prolactin Stl C. cayetanensis PCR Stool Rotavirus (PCR) Stool Adenovirus (PCR) Stool Astrovirus (PCR) Stool Cryptosporidium PCR Stl E.coli Shiga Tox PCR St Sh/Enteroin Ecoli PCR Stool E coli O157 PCR Stl Enterotoxigenic E PCR Stool EPEC (PCR) Stl E. histolytica PCR Stool Giardia Lamblia PCR Stool Sapovirus (PCR) Stl P. shigelloides PCR St Y.enterocolitica PCR Stool Vibrio (PCR) Stl Vibrio cholerae PCR Stl Enteroaggr Ecoli PCR Stl Norovirus GI/GII PCR U Opiates 300ng/mL cut Ur Oxycodone Screen Urine Methadone Screen Ur Barbiturates Screen U Tricyclic Antidepress Ur Phencyclidine Scrn Ur Amphetamines Screen U Methamphetamines Scrn Ur MDMA Scrn (Ecstasy) U Benzodiazepines Scrn Urine Cocaine Screen U Marijuana (THC) Screen Ethyl Alcohol Ketones Campylobacter (PCR) C. difficile Tox (PCR) COVID-19 PCR Salmonella (PCR) 10/25/20 10/25/20 10/25/20 05:12 05:12 09:15 WBC RBC Hgb Hct MCV MCH MCHC RDW Plt Count Neut % (Auto) Lymph % (Auto) [place]ulloch % (Auto) Eos % (Auto) Baso % (Auto) Neut # (Auto) Lymph # (Auto) [place]ull[place] # (Auto) Eos # (Auto) Baso # (Auto) VBG pH VBG pCO2 VBG pO2 VBG HCO3 VBG Total CO2 VBG O2 Saturation VBG Base Excess Sodium Potassium Chloride Carbon Dioxide BUN Creatinine Estimated GFR BUN/Creatinine Ratio Glucose Hemoglobin A1c Lactate 1.9 Calcium Phosphorus Magnesium 1.9 Total Bilirubin AST ALT Alkaline Phosphatase Total Creatine Kinase CK-MB (CK-2) CK-MB (CK-2) Rel Index Troponin I Total Protein Albumin Globulin Albumin/Globulin Ratio Triglycerides Cholesterol LDL Cholesterol, Calc HDL Cholesterol Lipase Procalcitonin Prolactin Stl C. cayetanensis PCR Not detected Stool Rotavirus (PCR) Not detected Stool Adenovirus (PCR) Not detected Stool Astrovirus (PCR) Not detected Stool Cryptosporidium PCR Not detected Stl E.coli Shiga Tox PCR Not detected St Sh/Enteroin Ecoli PCR Not detected Stool E coli O157 PCR Not detected Stl Enterotoxigenic E PCR Not detected Stool EPEC (PCR) Not detected Stl E. histolytica PCR Not detected Stool Giardia Lamblia PCR Not detected Stool Sapovirus (PCR) Not detected Stl P. shigelloides PCR Not detected St Y.enterocolitica PCR Not detected Stool Vibrio (PCR) Not detected Stl Vibrio cholerae PCR Not detected Stl Enteroaggr Ecoli PCR Not detected Stl Norovirus GI/GII PCR Not detected U Opiates 300ng/mL cut Ur Oxycodone Screen Urine Methadone Screen Ur Barbiturates Screen U Tricyclic Antidepress Ur Phencyclidine Scrn Ur Amphetamines Screen U Methamphetamines Scrn Ur MDMA Scrn (Ecstasy) U Benzodiazepines Scrn Urine Cocaine Screen U Marijuana (THC) Screen Ethyl Alcohol Ketones Campylobacter (PCR) Not detected C. difficile Tox (PCR) Not detected COVID-19 PCR Salmonella (PCR) Not detected PFSH Medical History (Updated 10/24/20 @ 21:12 by SANTOSH Gaspar) Acid reflux Alcoholism Depression Diabetes Diverticulitis Surgical History (Updated 10/24/20 @ 21:12 by SANTOSH Gaspar) History of knee surgery History of removal of ovarian cyst Family History (Updated 10/24/20 @ 21:13 by SANTOSH Gaspar) Father No significant medical problems Mother Hypertension Daughter No significant medical problems Social History household members: spouse Smoking Status: Former smoker alcohol intake: current Discharge Plan Discharge Plan Patient Disposition: Home Provider Discharge Comment: You are being discharged home. You had severe dehydration due to your alcohol use. You have been prescribed small Librium taper to help with alcohol cessation and avoid alcohol withdrawal. Please abstain from alcohol indefinitely. You were prescribed a multivitamin, folic acid and thiamine to take daily as these are depleted with chronic alcohol use. Try to stay well hydrated and drink plenty of fluids. Please follow-up with your primary care physician as soon as you return to [place] regarding your hospitalization and continued medical care, as well as, your GI specialist regarding your fatty liver. Discharge orders & Medications Prescriptions: New chlordiazepoxide HCl 25 mg Capsule 25 mg PO BID Qty: 5 RF: 0 thiamine HCl (vitamin B1) [Vitamin B-1] 100 mg Tablet 100 mg PO DAILY Qty: 30 RF: 0 folic acid 1 mg Tablet 1 mg PO DAILY Qty: 30 RF: 0 multivitamin with folic acid [Tab-A-Ximena] 400 mcg Tablet 1 tab PO DAILY Qty: 30 RF: 0 Continued bupropion HCl [Wellbutrin XL] 300 mg tablet extended release 24 hr 300 mg PO QAM RF: 0 lisinopril 2.5 mg tablet 2.5 mg PO DAILY RF: 0 omeprazole magnesium [Prilosec OTC] 20 mg tablet,delayed release (DR/EC) 20 mg PO DAILY RF: 0 metformin 500 mg tablet 1,000 mg PO BID RF: 0 Diet/Activity/Treatments Diet: Diet as Tolerated, Carb-consistent/Diabetic, Low-fat, Low-sodium and Low-cholesterol Activity: Activity as tolerated Visit Report/Discharge Packet Instructions: The Mediterranean Diet and Good Health, Alcoholic Hepatitis (Alternative Therapy), DI for Dehydration -- Adult, DI for Alcohol Use Disorder, DI for Drug or Alcohol Withdrawal, DI for Nonalcoholic Fatty Liver Disease Discharge Data Attending Provider: Mara Vasquez
[2020-10-25 13:00] VITALS: O2SAT 96
--- NOTE | 2020-10-25 14:27 | PC.NURSE ---
Day shift note: Patient awake, alert, and pleasantly cooperative. Up OOB to BR and chair with steady gait noted. CIWA score 2, reports anxiety. No visual or auditory disturbance, skin warm and dry. VSS and afebrile. Voiding, tolerating diet, no nausea or vomiting. Dressed self independently. Discharge instructions given to patient and spouse, discussed importance of F/U with PMD, new medication Rx Librium and tapering details, dietary and lifestyle changes. Both verbalized understanding of instructions. Home via private vehicle accompanied by spouse.
--- NOTE | 2020-10-25 14:36 | CM.SWNOTE ---
MANAGER [employer] Note Reviewed chart, spoke w/ ED MANAGER RETAIL SALES Bill this afternoon to understand more about patient and his assessment w/her when she was still in the ED. Met w/patient to introduce role. Patient has been discharged today and plans to return home to [place] w/her . Patient states she wants to remain sober and plans to seek support once home to do this. Patient states she is aware of the resources closer to her home and plans to contact a friend of hers that is also a drug and alcohol counselor. Strongly encouraged and supported patient to stay sober and seek treatment -intensive outpatient vs inpatient once she returns home. Patient appreciative of the visit and denies need for resources or further needs from this MANAGER [employer]ES. P: DC home w/spouse, denies the need for [facility] resources at this time JW
--- NOTE | 2020-10-29 17:29 | PC.NURSE ---
Late Entry; NS infusion initiated at 15:49, order discontinued 10/24 at 20:19. NS infusion initiated at 20:57, complete at 21:28. IV fluid bag with Mag and multivitamins (banana bag) infusion complete at 04:21. NS infusion initiated 10/25 at 03:42, stopped per MD discharge order at 11:59.
== END 2020-10-25 14:00 | disposition home or self-care (01) ==
LOC: ED 16:43 → AC 16:46
PROVIDERS: Emergency Medicine; Nurse Practitioner Adult Health; Admitting Provider Internal Medicine; Emergency Provider Nurse Practitioner Family; Referring Provider Nurse Practitioner Family; Visit Provider Internal Medicine
DX: E87.2 Acidosis (principal); R10.32 Left lower quadrant pain; R00.0 Tachycardia, unspecified; E86.0 Dehydration; E11.65 Type 2 diabetes mellitus with hyperglycemia; Z79.84 Long term (current) use of oral hypoglycemic drugs; F10.20 Alcohol dependence, uncomplicated; K76.0 Fatty (change of) liver, not elsewhere classified; K70.9 Alcoholic liver disease, unspecified; F32.9 Major depressive disorder, single episode, unspecified; K21.9 Gastro-esophageal reflux disease without esophagitis; I10 Essential (primary) hypertension; Z11.59 Encounter for screening for other viral diseases
CPT/HCPCS: 36415; 71045; 74177; 76705; 80048; 80053; 80061; 80305; 80320; 81003; 82009; 82550; 82553; 82805; 82962; 83036; 83605; 83690; 83735; 84100; 84145; 84146; 84484; 85025; 87040; 87493; 87507; 87635; 93005; 96361; 96365; 96372; 96375; 96376; 99284; G0378; C9113; J1170; J1644; J1885; J2060; J2543; J3475; Q9967

== ENCOUNTER → 2021-03-26 12:40 | Outpatient (CLI) | payer OTHER, SELFPAY ==
[2020-10-24 17:29] VITALS: BMI 31.5
== END ==
PROVIDERS: Visit Provider Student in an Organized Health Care Education/Training Program
DX: N34.3 Urethral syndrome, unspecified (principal)
CPT/HCPCS: 87077; 87086; 87186

== ENCOUNTER 2022-03-10 10:01 | Emergency (ER) | payer OTHER, SELFPAY ==
[2020-10-24 17:29] VITALS: BMI 31.5
[2022-03-10 10:08] VITALS: BP 152/76; PULSE 88; RESP 15; TEMP 36.7; O2SAT 96; BMI 29.6
--- NOTE | 2022-03-10 10:11 | DI.RAD.S_ITS ---
PROCEDURE: XR HAND LT MIN 3V INDICATIONS: hand injury TECHNIQUE: 3 views of the hand(s) acquired. COMPARISON: None. FINDINGS: Bones: No acute fracture or dislocation. Severe degenerative changes are present at the left 2nd and 3rd interphalangeal joints. No suspicious bony lesions. No periarticular osteopenia. A bony lucency is present at the base of the 1st metacarpal. Moderate degenerative changes present at the 1st CMC joint. Soft tissues: No suspicious soft tissue calcifications. IMPRESSION: 1. Osteoarthritis. Subtle lucency at the base of the 1st metacarpal likely represent subchondral cystic change 2. No acute radiographic findings. If pain persists, followup imaging in 5-7 days is recommended to exclude occult fracture. Dictated by: Delia Morris M.D. on 03/10/2022 at 10:35 Approved by: Delia Morris M.D. on 03/10/2022 at 10:41
--- NOTE | 2022-03-10 11:32 | DI.RAD.S_ITS ---
PROCEDURE: XR WRIST RT MIN 3V INDICATIONS: wrist pain, painful extension TECHNIQUE: 4 views of the wrist were acquired. COMPARISON: [facility], CR, XR HAND LT MIN 3V, 03/10/2022, 10:17. FINDINGS: Bones: No fractures or dislocations. Mild to moderate osteophytosis and joint space loss of the 1st carpometacarpal articulation. Scaphoid view: Intact. Soft tissues: No suspicious soft tissue calcifications. IMPRESSION: No acute osseous abnormality. Dictated by: David Ramon M.D. on 03/10/2022 at 11:49 Approved by: David Ramon M.D. on 03/10/2022 at 11:52
--- NOTE | 2022-03-10 11:33 | ED_ITS ---
HPI - Extremity Injury (Upper) General Chief Complaint: Extremity Injury, Upper Stated Complaint: fell, left hand pain Time Seen by Provider: 03/10/22 11:27 Source: patient Mode of arrival: Ambulatory Limitations: no limitations History of Present Illness HPI narrative: This is a 62-year-old female who fell tripping while going up stairs onto her left hand. Patient landed on the back of her hand. She has bruising over the dorsum of her hand. She has pain at the wrist itself and quite a bit of pain with extension. Patient has no other injuries or other issues. Patient denies any numbness, tingling otherwise. No acute weakness. Related Data Home Medications Medication Instructions Recorded Confirmed bupropion HCl 300 mg 24 hr tablet, 300 mg PO QAM 09/18/20 03/26/21 extended release (Wellbutrin XL) lisinopril 2.5 mg tablet 2.5 mg PO DAILY 09/18/20 03/26/21 metformin 500 mg tablet 1,000 mg PO BID tab 09/18/20 03/26/21 omeprazole magnesium 20 mg 20 mg PO DAILY 09/18/20 03/26/21 tablet,delayed release (Prilosec OTC) Previous Rx's Medication Instructions Recorded chlordiazepoxide HCl 25 mg capsule 25 mg PO BID #5 cap 10/25/20 folic acid 1 mg tablet 1 mg PO DAILY #30 tab 10/25/20 multivitamin with folic acid 400 1 tab PO DAILY #30 tab 10/25/20 mcg tablet (Tab-A-Ximena) thiamine HCl (vitamin B1) 100 mg 100 mg PO DAILY #30 tab 10/25/20 tablet (Vitamin B-1) phenazopyridine 100 mg tablet 100 mg PO TID PRN #6 tab 03/26/21 (Pyridium) tramadol 50 mg tablet 50 mg PO Q6H PRN #10 tab 03/10/22 Allergies Allergy/AdvReac Type Severity Reaction Status Date / Time ciprofloxacin [From Cipro] AdvReac GI upset Verified 03/10/22 10:11 morphine AdvReac headache Verified 03/10/22 10:11 Review of Systems Review of Systems ROS Unobtainable: All systems reviewed & are unremarkable except as noted in HPI and below Patient History Medical History Acid reflux Alcoholism Depression Diabetes Diverticulitis Surgical History History of knee surgery History of removal of ovarian cyst Family History Father No significant medical problems Mother Hypertension Daughter No significant medical problems Social History household members: spouse Smoking Status: Former smoker alcohol intake: current Smoking Status: Former smoker alcohol intake frequency: 3 or more drinks per day Alcohol type: hard liquor Substance Use Type: does not use Exam Narrative Exam Narrative: GENERAL: Alert and oriented x three, female in mild distress. HEENT: Head normocephalic, atraumatic, EOMI, pupils reactive, face symmetric, moist mucous membranes NECK: Supple, full range of motion CARDIOVASCULAR: Regular rate and rhythm without murmurs, rubs or gallops. RESPIRATORY: Breath sounds equal bilaterally, no wheezes rales or rhonchi. ABDOMEN: Soft, nontender. Normoactive bowel sounds all 4 quadrants. No guarding or rebound, rigidity, no mass EXTREMITIES: Patient has normal range of motion of all 5 fingers, she has some decreased extension secondary to pain at the wrist but is able to extend it. Patient has no obvious deformity. She does have ecchymosis over the dorsum of the hand measuring about 4 cm x 3 cm. Patient is tender over the bone she is also tender with squeeze at the radius and ulna. Patient has 2+ radial pulse. Normal sensation throughout cap refill less than 2 seconds. NEUROLOGICAL: Cranial nerves II through XII grossly intact. Moving all extremities SKIN: Warm, dry, no petechiae, no rashes or lesions. Initial Vital Signs Initial Vital Signs: Vital Signs Temperature 98.1 F 03/10/22 10:08 Pulse Rate 88 03/10/22 10:08 Respiratory Rate 15 03/10/22 10:08 Blood Pressure 152/76 H 03/10/22 10:08 Pulse Oximetry 96 03/10/22 10:08 Course Orders Ordered: ED Orders 03/10/22 11:32 XR wrist RT min 3V Stat Vital Signs Vital signs: Vital Signs - 8 hr 03/10/22 10:08 Temperature 98.1 F Pulse Rate 88 Respiratory Rate 15 Blood Pressure 152/76 H Pulse Oximetry 96 MDM - Extremity Injury (Upper) Imaging Data Extremity x-ray #1: Radiologist's Impression: Elisa Gómez??62??F??1960 ? Allergy/Adv: ciprofloxacin, morphine (More??) Close Hand X-Ray (Signed) Delia Morris - 03/10/22 Abdomen Ultrasound (Signed) Saul Greene - 10/24/20 Chest X-Ray (Signed) Lázaro Dumont - 10/24/20 Abdomen/Pelvis CT (Signed) Hector Wong - 10/24/20 Launch?[address] [address] XRay Report Signed Patient: Elisa Gómez MR#: [id number] : 1960 Acct:[id number] Age/Sex: 62 / F Date of Service: 03/10/22 Loc: ED Accession Number: [id number] ?? Procedure: XR hand LT min 3V Ordering Provider: Lisa Noguera D.O. PROCEDURE:? XR HAND LT MIN 3V ? INDICATIONS:? hand injury ? TECHNIQUE:? 3 views of the hand(s) acquired.? ? COMPARISON:? None. ? FINDINGS:? ? Bones:? No acute fracture or dislocation.? Severe degenerative changes are pr esent at the left 2nd and 3rd interphalangeal joints.? No suspicious bony lesions.? No periarticular osteopenia.? A bony lucency is present at the base of the 1st metacarpal.? Moderate degenerative changes present at the 1st CMC joint. ? Soft tissues:? No suspicious soft tissue calcifications.? ? ? IMPRESSION:? ? 1. Osteoarthritis.? Subtle lucency at the base of the 1st metacarpal likely represent subchondral cystic change ? 2. No acute radiographic findings. If pain persists, followup imaging in 5-7 days is recommended to exclude occult fracture. ? Dictated by: Delia Morris M.D. on 03/10/2022 at 10:35 ? ? Approved by: Delia Morris M.D. on 03/10/2022 at 10:41?? Extremity x-ray #2: Radiologist's Impression: [facility] ?14? My List ?6? Waiting ?2? Surge ED ?0? R02? Leech? Chuck? 24 M? With Doctor? 1h 33m? 4-Less Urgent? ?? Extremity Injury, Upper? sliced finger with a saw? ?? 03/10/22 12:02? REG ER? No Document? Linda Min Shira Dennis Order BP 121/46 Pulse 72 Resp 14 Temp 97.6 F O2 Sat 95% (RA) Imaging MAR R04? Valdez? Cheryl? 39 F? With Doctor? 2h 19m? 4-Less Urgent? ?? Animal Bite? Animal bite right hand? ?? 03/10/22 10:55? REG ER? Draft? Lisa Silva Dennis ? Order BP 132/79 Pulse 90 Resp 14 Temp 99.0 F O2 Sat 98% (RA) MAR R05? Edge? Laurentia? 62 F? Admitted Observation Patient? 3h 22m? 3-Urgent? VC: 1? Abdominal Pain? can't stop throwing up? C19S/S? 03/10/22 09:12? ADM MINGO? Draft? Lisa Mariepretty Collins Need Pee Copeland, obs Order BP 168/79 Pulse Resp Temp O2 Sat ?Complete B... Lipase Sta... ?Chem ?Lactate (L... ?Procalcito... Imaging MAR NPO Diet EKG-12 Page... Cardiac mo... Urinalysis... Microbiolo... R06? John? Jemal? 78 M? Pending Admission? 4h 36m? 2-Emergent? ?? Diabetic Problem? Asphasia? ?? 03/10/22 07:46? REG ER? Draft? Lisa Silva Dennis ? Order BP 92/54 Pulse Resp Temp O2 Sat 96% (RA) Ketones (B... ?Venous Blo... ?Partial Th... Procalcito... Prothrombi... ?Troponin &... Imaging ?Electrolyt... ?Glucose St... MAR Cardiac mo... EKG-12 Page... POC/NADER Urinalysis... COVID19 -N... R07? Zuniga? Katya? 31 F? With Doctor? 1h 12m? 3-Urgent? ?? Nausea/Vomiting/Diarrhea? Hand pain and nausea s/p hand surgery? C19S/S? 03/10/22 11:40? REG ER? No Document? Linda Sykes B Order BP 150/84 Pulse 52 Resp 18 Temp 98.6 F O2 Sat 98% (RA) ?Complete B... ?Chem Lipase Sta... MAR NPO Diet POC/NADER R08? Gómez? Elisa? 62 F? With Doctor? 2h 13m? 4-Less Urgent? ?? Extremity Injury, Upper? fell, left hand pain? ?? 03/10/22 11:27? REG ER? Draft? Lsia Collins Order BP 152/76 Pulse 88 Resp 15 Temp 98.1 F O2 Sat 96% (RA) Imaging R10? Fisher? Aurora? 73 F? With Doctor? 1h 46m? 2-Emergent? ?? Chest Pain? SOB Dyspnea Tightness in chest? C19S/S? 03/10/22 11:28? REG ER? Draft? Lisa Noguera Rosario Lyle repeat trop/EKG asa Order BP 128/79 Pulse 122 Resp Temp O2 Sat 98% ?Troponin &... ?Complete B... Magnesium ... Prothrombi... ?Chem Lipase Sta... Partial Th... Imaging ?D Dimer St... NT-proBNP ... MAR NPO Diet EKG-12 Page... Cardiac mo... Troponin I... R11? Staley? Kodak? 21 M? Boarding? 15h 23m? 3-Urgent? VC: 1? Abdominal Pain? REALLY BAD STOMACH PAIN KEEP THROWING UP? ISO, C19S/S? 03/09/22 20:58? ADM IN? Signed? Navin Lyle admitted Maria E Order BP 137/85 Pulse 73 Resp Temp O2 Sat 99% ?Lactate (L... ?Complete B... ?Chem Imaging COVID19 -N... ?Complete B... MAR POC/NADER Transfer p... Code Statu... Clear Liqu... R12? White? Robbin? 51 F? Boarding? 16h 44m? 2-Emergent? ?? Chest Pain? CHEST PAIN NAUSEA HIGH BLOOD PRESSURE? C19S/S? 03/09/22 20:22? ADM IN? Signed? Navin Montero Rosario T [address] Order BP 141/76 Pulse 69 Resp 16 Temp O2 Sat 93% ?Troponin &... Complete B... Lipase Sta... ?Chem Magnesium ... Imaging COVID19 -N... ?Hemoglobin... POC/NADER Troponin I... Troponin I... TSH w/ Ref... Urine Micr... ?Lipid Pane... MAR Cardiac mo... EKG-12 Page... Consult to... Chem Chem Complete B... Complete B... Complete B... Magnesium ... Code Statu... Admit as R... Cardiac mo... Chem Chem Complete B... Magnesium ... Magnesium ... Magnesium ... Cardiac mo... Troponin I... Troponin I... Carbohydra... R13? Boykan? Annie? 65 F? Boarding? 26h 19m? 2-Emergent? VC: 2? Altered Mental Status? Psych? SI, ?, Sign Out? 03/09/22 10:15? REG ER? Draft? Lisa oNguera Rosario T DCR NO beds avail/gravely disabled [facility] Order BP 98/54 Pulse 94 Resp 18 Temp 98.1 F O2 Sat 98% (RA) Acetaminop... ?Chem Ethanol (E... Free T4, D... Salicylate... Thyroid St... Urine Drug... ?Complete B... COVID19 -N... Urinalysis... MAR EKG-12 Page... Consult to... General (R... [place]? Abby? Sandip? 61 M? With Nurse? 53m? 3-Urgent? ?? Nausea/Vomiting/Diarrhea? Vomiting 5 days? C19S/S? No Time Seen? REG ER? No Document? Sign Up Mony Collins Benjamin (Next of Kin) Order BP 142/88 Pulse 122 Resp 16 Temp 97.9 F O2 Sat 94% (RA) ?Complete B... ?Venous Blo... MAR NPO Diet Chem POC/NADER Ketones (B... [place]? Antony? Jazmin? 84 F? With Nurse? 1h 5m? 4-Less Urgent? VC: 1? Extremity Problem,Nontraumatic? Pinched nerve thigh? ?? No Time Seen? REG ER? No Document? Sign Up Mony B Order BP 152/67 Pulse 91 Resp 15 Temp 98.4 F O2 Sat 96% (RA) WRoom? Christianson? M? 77 F? Registered? 35m? 3-Urgent? VC: 1? Abdominal Pain? Out of pain meds? ?? No Time Seen? REG ER? No Document? Sign Up Order BP 203/86 Pulse 69 Resp 16 Temp 97.2 F O2 Sat 97% (RA) Chem Lipase Sta... Partial Th... Prothrombi... Cardiac mo... NPO Diet Complete B... EKG-12 Page... POC/NADER WRoom? Hempill? Molly? 69 F? Waiting Room? 12m? No Chief Complaint? Chronic diarrhea abd pain? ?? No Time Seen? PRE ER? No Document? Sign Up Order Imaging - XR hand LT min 3V; XR wrist RT min 3V Elisa Gómez??62??F??1960 ? Allergy/Adv: ciprofloxacin, morphine (More??) Close Results Imaging ACTIVITY DATE EXAM STATUS AUTHOR 03/10/22 11:32 Wrist X-Ray Signed David Ramon 03/10/22 10:11 Hand X-Ray Signed Delia Morris Imaging Reports Close Wrist X-Ray (Signed) YennyJordiDavid - 03/10/22 Hand X-Ray (Signed) Delia Morris - 03/10/22 Launch?[address] [address] XRay Report Signed Patient: Elisa Gómez MR#: [id number] : 1960 Acct:[id number] Age/Sex: 62 / F Date of Service: 03/10/22 Loc: ED Accession Number: [id number] ?? Procedure: XR wrist RT min 3V Ordering Provider: Lisa Noguera D.O. PROCEDURE:? XR WRIST RT MIN 3V ? INDICATIONS: wrist pain, painful extension ? TECHNIQUE:? 4 views of the wrist were acquired.? ? COMPARISON:? [facility], CR, XR HAND LT MIN 3V, 03/10/2022, 10:17. ? FINDINGS:? ? Bones:? No fractures or dislocations.? Mild to moderate osteophytosis and joint space loss of the 1st carpometacarpal articulation.? ? Scaphoid view:? Intact. ? Soft tissues:? No suspicious soft tissue calcifications.? ? IMPRESSION:? No acute osseous abnormality. ? ? Dictated by: David Ramon M.D. on 03/10/2022 at 11:49 ? ? Approved by: David Ramon M.D. on 03/10/2022 at 11:52? MDM Narrative Medical decision making narrative: 62-year-old female with fall going up the stairs landing on the dorsum of her hand with her weight. Patient's has some lucency at the 1st metacarpal possible bone cyst this is not where she is tender. Patient also has tenderness at the wrist nothing obviously appreciated on hand x-ray but does dedicated wrist x-ray was obtained as she is quite painful with extension at the wrist. Discharge Plan Departure Patient Disposition: Home Clinical Impression: Contusion of hand Instructions: DI for Contusion Activity Restrictions/Additional Instructions: Follow-up with your physician in the next 7-10 days for recheck. If symptoms have not completely resolved. You can take tylenol up 1000mg every 6 hours as needed and/or ibuprofen every 600 mg every 6 hours. Splint Care: Keep splint clean and dry. Elevated affected body part to decrease swelling. OK to use ice pack on the affected body part. Use for 15-20 minutes each time, for 5-6x per day. If you develop worsening pain, numbness, tingling, discoloration of the affected body part, loosen the splint by loosening the LAURA wrap, and either see your doctor for an urgent re-assessment, or return to the Emergency Department. Return to the Emergency Department for any new or worsening symptoms. Prescriptions: New tramadol 50 mg tablet 50 mg PO Q6H PRN (Reason: pain) Qty: 10 0RF No Action bupropion HCl [Wellbutrin XL] 300 mg tablet extended release 24 hr 300 mg PO QAM 0RF lisinopril 2.5 mg tablet 2.5 mg PO DAILY 0RF omeprazole magnesium [Prilosec OTC] 20 mg tablet,delayed release (DR/EC) 20 mg PO DAILY 0RF metformin 500 mg tablet 1,000 mg PO BID 0RF phenazopyridine [Pyridium] 100 mg tablet 100 mg PO TID PRN (Reason: pain) Qty: 6 0RF chlordiazepoxide HCl 25 mg Capsule 25 mg PO BID Qty: 5 0RF Rx Instructions: 10/25 50 mg tonight, then 10/26 25 mg twice daily, and then 25 mg daily then stop thiamine HCl (vitamin B1) [Vitamin B-1] 100 mg Tablet 100 mg PO DAILY Qty: 30 0RF folic acid 1 mg Tablet 1 mg PO DAILY Qty: 30 0RF multivitamin with folic acid [Tab-A-Ximena] 400 mcg Tablet 1 tab PO DAILY Qty: 30 0RF Referrals: Tamra Messina MD [Primary Care Provider] -
== END 2022-03-10 12:40 | disposition home or self-care (01) ==
PROVIDERS: Emergency Provider Emergency Medicine; PCP Internal Medicine
DX: S60.221A Contusion of right hand, initial encounter (principal); W01.0XXA Fall on same level from slipping, tripping and stumbling without subsequent striking against object, initial encounter
CPT/HCPCS: 73110; 73130; 99283

== ENCOUNTER → 2025-02-25 14:47 | Outpatient (CLI) | payer OTHER, SELFPAY ==
[2020-10-24 17:29] VITALS: BMI 31.5
== END ==
PROVIDERS: PCP Internal Medicine; Visit Provider Registered Nurse
DX: R30.0 Dysuria (principal)
CPT/HCPCS: 87086

== ENCOUNTER 2025-03-01 12:41 | Emergency (ER) | payer OTHER, SELFPAY ==
[2020-10-24 17:29] VITALS: BMI 31.5
[2025-03-01 12:44] VITALS: BP 147/75; PULSE 104; RESP 14; TEMP 36.6; O2SAT 97; BMI 27.4
--- NOTE | 2025-03-01 13:21 | ED.FEMALEGU ---
HPI - Female Genitourinary <Varsha Fox PA-C - Last Filed: 03/01/25 17:10> General Chief complaint: Urogenital-Female Stated complaint: sent by [facility], UTI not getting better x4 days Time Seen by Provider: 03/01/25 13:00 Mode of arrival: Ambulatory History of Present Illness HPI Narrative: Ms. Gómez is a pleasant 65-year-old female with a past medical history of type 2 diabetes on metformin, hypertension who presents to the emergency department for right-sided flank pain since yesterday, UTI on Macrobid x4 days. Patient initially presented to the walk-in clinic on 02/25/2025 for dysuria for 2 days, her point of care urinalysis was positive so she was started on Macrobid which she has been taking. She is also taking AZO. States that her dysuria is improving but she has started to develop bilateral flank pain that is constant and much worse on the right-hand side. Her urine culture from 02/25/2025 grew 3 or more colony types so was deemed unsuitable for further studies. She reports having a fever Wednesday and Wednesday of this week but reports that she had no fever yesterday or today. She denies flu-like symptoms, fevers, chills, chest pain, shortness of breath, cough, abdominal pain, vomiting, diarrhea, constipation. She does report mild nausea associated with a constant right flank pain. Reports history of pyelonephritis and this feels similar. Related Data Home Medications Medication Instructions Recorded Confirmed bupropion HCl 300 mg 24 hr tablet, 300 mg PO QAM 09/18/20 03/26/21 extended release (Wellbutrin XL) lisinopril 2.5 mg tablet 2.5 mg PO DAILY 09/18/20 03/26/21 metformin 500 mg tablet 1,000 mg PO BID 09/18/20 03/26/21 omeprazole magnesium 20 mg 20 mg PO DAILY 09/18/20 03/26/21 tablet,delayed release (Prilosec OTC) rosuvastatin 20 mg tablet (Crestor) 20 mg PO DAILY 02/25/25 02/25/25 Previous Rx's Medication Instructions Recorded multivitamin with folic acid 400 1 tab PO DAILY #30 tabs 10/25/20 mcg tablet (Tab-A-Ximena) thiamine HCl (vitamin B1) 100 mg 100 mg PO DAILY #30 tabs 10/25/20 tablet (Vitamin B-1) nitrofurantoin 100 mg PO Q12H 5 days #10 caps 02/25/25 monohydrate/macrocrystals 100 mg capsule (Macrobid) phenazopyridine 200 mg tablet 200 mg PO Q8H 6 doses #6 tabs 02/26/25 (Pyridium) sulfamethoxazole 800 1 tab PO Q12H 10 days #20 tabs 03/01/25 mg-trimethoprim 160 mg tablet (Bactrim DS) Allergies Allergy/AdvReac Type Severity Reaction Status Date / Time ciprofloxacin [From Cipro] AdvReac GI upset Verified 03/01/25 12:44 morphine AdvReac headache Verified 03/01/25 12:44 Review of Systems <Varsha Fox PA-C - Last Filed: 03/01/25 17:10> Review of Systems ROS Unobtainable: All systems reviewed & are unremarkable except as noted in HPI and below Patient History <Varsha Fox PA-C - Last Filed: 03/01/25 17:10> Medical History Alcoholism Diverticulitis Depression Acid reflux Diabetes Surgical History History of knee surgery History of removal of ovarian cyst Family History Father No significant medical problems Mother Hypertension Daughter No significant medical problems Alcohol type: hard liquor Exam <Varsha Fox PA-C - Last Filed: 03/01/25 17:10> Narrative Exam Narrative: GENERAL: 65 year old patient appears stated age. Well-developed patient, in no acute distress. HEAD: Atraumatic. Normocephalic. EYES: No scleral icterus. No injection or drainage. NECK: Trachea midline. Cervical ROM intact. CARDIOVASCULAR: Regular rate and rhythm. RESPIRATORY: ?Nonlabored respirations. ?Speaking in clear, full sentences. ?Clear to auscultation. Breath sounds equal bilaterally. No wheezes, rales, or rhonchi. ? GASTROINTESTINAL: Abdomen soft, non-tender, nondistended. BS present. No rebound or guarding. EXTREMITIES: No edema or joint tenderness. BACK: +right sided CVA tenderness. Minor erythema overlying this area, no rash, patient reports redness is likely from heating pad use. NEURO: AOx3. ?Clear speech. ?Moves all 4 extremities appropriately. SKIN: No rashes or wounds. Initial Vital Signs Initial Vital Signs: Vital Signs Temperature 97.8 F 03/01/25 12:44 Pulse Rate 104 H 03/01/25 12:44 Respiratory Rate 14 03/01/25 12:44 Blood Pressure 147/75 H 03/01/25 12:44 Pulse Oximetry 97 03/01/25 12:44 Oxygen Delivery Method Room Air 03/01/25 12:44 <Ajay Schmidt MD - Last Filed: 03/01/25 21:01> Initial Vital Signs Initial Vital Signs: Vital Signs Temperature 97.8 F 03/01/25 12:44 Pulse Rate 104 H 03/01/25 12:44 Respiratory Rate 14 03/01/25 12:44 Blood Pressure 147/75 H 03/01/25 12:44 Pulse Oximetry 97 03/01/25 12:44 Oxygen Delivery Method Room Air 03/01/25 12:44 Course <Varsha Fox PA-C - Last Filed: 03/01/25 17:10> Orders Ordered: ED Orders 03/01/25 13:10 Urinalysis and Microscopic Stat Urine Culture Stat 03/01/25 13:28 CT abdomen pelvis w con Stat 03/01/25 13:50 Complete Blood Count AUTO DIFF Stat Comprehensive Metabolic Panel Stat Lactate (Lactic Acid) Stat Lipase Stat 03/01/25 14:38 Blood Culture Stat Discontinued Medications Hydrocodone Bitart/Acetaminophen (Hydrocodone/Acet 5/325 Tablet) 1 tab PO NOW ONE Stop: 03/01/25 15:12 Last Admin: 03/01/25 15:33 Dose: 1 tab Documented By: AURELIO Sodium Chloride (Normal Saline 0.9%) 1,000 mls @ 1,000 mls/hr IV BOLUS ONE Stop: 03/01/25 14:27 Last Infusion: 03/01/25 15:00 Dose: Infused Documented By: Admin: 03/01/25 13:58 Dose: 1,000 mls/hr Documented By: AURELIO Ceftriaxone Sodium 1,000 mg/ (Sodium Chloride) 100 mls @ 200 mls/hr IV NOW ONE Stop: 03/01/25 16:19 Last Infusion: 03/01/25 17:02 Dose: Infused Documented By: Admin: 03/01/25 16:30 Dose: 200 mls/hr Documented By: AURELIO Ketorolac Tromethamine (Ketorolac 30 Mg/Ml Vial) 15 mg IV NOW ONE Stop: 03/01/25 13:29 Last Admin: 03/01/25 13:57 Dose: 15 mg Documented By: AURELIO Ondansetron HCl (Ondansetron 4 Mg/2 Ml Inj) 4 mg IV NOW ONE Stop: 03/01/25 13:29 Last Admin: 03/01/25 13:58 Dose: 4 mg Documented By: AURELIO Vital Signs Vital signs: Vital Signs - 8 hr 03/01/25 17:02 Temperature 98.1 F Pulse Rate 83 Respiratory Rate 15 Blood Pressure 129/73 Pulse Oximetry 96 <Ajay Schmidt MD - Last Filed: 03/01/25 21:01> Orders Ordered: ED Orders 03/01/25 13:10 Urinalysis and Microscopic Stat Urine Culture Stat 03/01/25 13:28 CT abdomen pelvis w con Stat 03/01/25 13:50 Complete Blood Count AUTO DIFF Stat Comprehensive Metabolic Panel Stat Lactate (Lactic Acid) Stat Lipase Stat 03/01/25 14:38 Blood Culture Stat Discontinued Medications Hydrocodone Bitart/Acetaminophen (Hydrocodone/Acet 5/325 Tablet) 1 tab PO NOW ONE Stop: 03/01/25 15:12 Last Admin: 03/01/25 15:33 Dose: 1 tab Documented By: AURELIO Sodium Chloride (Normal Saline 0.9%) 1,000 mls @ 1,000 mls/hr IV BOLUS ONE Stop: 03/01/25 14:27 Last Infusion: 03/01/25 15:00 Dose: Infused Documented By: Admin: 03/01/25 13:58 Dose: 1,000 mls/hr Documented By: AURELIO Ceftriaxone Sodium 1,000 mg/ (Sodium Chloride) 100 mls @ 200 mls/hr IV NOW ONE Stop: 03/01/25 16:19 Last Infusion: 03/01/25 17:02 Dose: Infused Documented By: Admin: 03/01/25 16:30 Dose: 200 mls/hr Documented By: AURELIO Ketorolac Tromethamine (Ketorolac 30 Mg/Ml Vial) 15 mg IV NOW ONE Stop: 03/01/25 13:29 Last Admin: 03/01/25 13:57 Dose: 15 mg Documented By: AURELIO Ondansetron HCl (Ondansetron 4 Mg/2 Ml Inj) 4 mg IV NOW ONE Stop: 03/01/25 13:29 Last Admin: 03/01/25 13:58 Dose: 4 mg Documented By: AURELIO Vital Signs Vital signs: Vital Signs - 8 hr 03/01/25 17:02 Temperature 98.1 F Pulse Rate 83 Respiratory Rate 15 Blood Pressure 129/73 Pulse Oximetry 96 MDM - Female Genitourinary <Varsha Fox PA-C - Last Filed: 03/01/25 17:10> Medical Records Attestation: I reviewed the patient's medical records. Medical records narrative: Urine culture 02/25/2025 grew mixed Gram-positive tawanna, deemed unsuitable for further studies. Urine culture 03/26/2021 grew E coli and was not resistant to any antibiotics. Lab Data 03/01/25 13:50 03/01/25 13:50 Labs: Lab Results 03/01/25 03/01/25 Range/Units 13:10 13:50 WBC 4.4 L (4.5-11.0) X10^3/uL RBC 4.01 (4.0-5.2) X10^6/uL Hgb 10.9 L (12.0-16.0) g/dL Hct 33.5 L (36-46) % MCV 83.4 (80-100) fL MCH 27.1 (26-34) PG MCHC 32.5 (30-36) % RDW 15.1 H (11.6-14.8) % Plt Count 218 (150-400) X10^3/uL Neut % (Auto) 62.5 (50-75) % Lymph % (Auto) 20.2 L (25-40) % Dane % (Auto) 15.1 H (3-14) % Eos % (Auto) 1.5 L (2-4) % Baso % (Auto) 0.7 (0-2) % Neut # (Auto) 2800 (4882-7729) /uL Lymph # (Auto) 900 L (9113-9709) /uL Dane # (Auto) 700 (0-900) /uL Eos # (Auto) 100 (0-450) /uL Baso # (Auto) 0 (0-100) /uL Sodium 139 (137-145) mmol/L Potassium 4.2 (3.4-5.1) mmol/L Chloride 107 (98-107) mmol/L Carbon Dioxide 19 L (22-32) mmol/L BUN 12 (7-17) mg/dL Creatinine 0.65 (0.52-1.04) mg/dL Estimated GFR > 60 (>60) mL/min BUN/Creatinine Ratio 18.5 (6-22) Glucose 156 H (80-110) mg/dL Lactate 1.8 (0.7-2.1) mmol/L Calcium 9.7 (8.4-10.2) mg/dL Total Bilirubin 0.8 (0.2-1.3) mg/dL AST 53 H (14-36) IU/L ALT 42 H (<35) IU/L Alkaline Phosphatase 96 (38-126) U/L Total Protein 8.1 (6.3-8.2) g/dL Albumin 4.8 (3.5-5.0) g/dL Globulin 3.3 (1.7-4.1) g/dL Albumin/Globulin Ratio 1.5 (1.0-2.8) Lipase 100 (23-300) U/L Urine Color [place] Urine Appearance Sl cloudy Urine pH 5.0 (4.5-8.0) Ur Specific [place] >=1.030 H (1.000-1.035) Urine Protein 1+ H (Negative) Urine Glucose (UA) Trace H (Negative) g/dL Urine Ketones Trace H (NEGATIVE) Urine Occult Blood Negative (Negative) Urine Nitrate Positive H (Negative) Urine Bilirubin Negative (NEGATIVE) Urine Urobilinogen 4.0 H (0.2) E.U./dL Ur Leukocyte Esterase Negative (NEGATIVE) Urine RBC None seen (0-5/HPF) Urine WBC 5-10/hpf H (0-5/HPF) Ur Squamous Epith Cells 5-10 /hpf H (0-5/HPF) Amorphous Sediment 1+ Urine Bacteria Moderate (10-30) H (None) Ur Culture Indicated? Specimen cultured Vol Urine Centrifuged 10ml (spun) Imaging Data CT scan - abdomen/pelvis: Radiologist's Impression: PROCEDURE: CT ABDOMEN PELVIS W CON INDICATIONS: BL flank pain worse on right; uti TECHNIQUE: After the administration of intravenous contrast, axial sections acquired from the lung bases to the pubic symphysis. Coronal and sagittal reformats were performed. For radiation dose reduction, the following was used: automated exposure control, adjustment of mA and/or kV according to patient size. COMPARISON: [facility], CT, CT ABDOMEN PELVIS W CON, 10/24/2020, 13:08. FINDINGS: Image quality: Diagnostic. Lower Chest: No significant findings. ABDOMEN: Liver: No solid mass. Liver is mildly hypoattenuating, suspicious for fatty infiltration. Liver measures 19.5 cm craniocaudal dimension. Gallbladder: No radiopaque gallstones or wall thickening. Biliary ducts: No biliary dilation. Pancreas: No ductal dilation. Spleen: Size is within normal limits. Adrenal Glands: No adrenal nodules. Kidneys and Ureters: No hydronephrosis. No solid mass. No complex renal cystic lesion which requires follow up. Benign left renal cyst. Stomach and Bowel: Multiple diverticula are seen in the colon without focal fat stranding to suggest acute diverticulitis. Mild bowel wall thickening in the descending and sigmoid colon. Peritoneum: No abnormal intraperitoneal fluid. No free air. Ventral Wall: No significant ventral hernia. Abdominal Nodes: No retroperitoneal or mesenteric adenopathy by size criteria. Vessels: Aorta and inferior vena cava are normal in size. PELVIS: Pelvic Organs: Anteverted uterus. No suspicious adnexal mass. Bladder: No bladder wall thickening, accounting for underdistention. Pelvic Nodes: No enlarged lymph nodes. Miscellaneous: No inguinal hernias are seen. Bones: No aggressive osseous abnormality. IMPRESSION: 1. Mild bowel wall thickening in the distal transverse, descending, and sigmoid colon may be secondary to underdistention versus a nonspecific colitis. Colonic diverticulosis without focal diverticulitis seen. 2. Hepatomegaly and diffuse hepatic steatosis. 3. No definite CT signs of pyelonephritis although close clinical correlation is recommended. MDM Narrative Medical decision making narrative: 65-year-old female with a past medical history of type 2 diabetes on metformin, hypertension who presents to the emergency department for right-sided flank pain since yesterday, UTI on Macrobid x4 days. Differential diagnosis includes but is not limited to urinary tract infection, pyelonephritis, ureterolithiasis, nephrolithiasis, diverticulitis, appendicitis, cholecystitis, etc. On exam patient is in no acute distress, nontoxic appearing, heart rate is mildly elevated at 104 in triage, she is afebrile. She has right-sided CVA tenderness, abdomen is soft and nontender. She has been taking Macrobid for urinary tract infection, urine culture revealed mixed Gram-positive tawanna so it was deemed unsuitable for further studies. Now with the development of bilateral flank pain and a fever at home, we will obtain labs, lactate, blood cultures, CT abdomen pelvis with IV contrast for further evaluation. We will treat with fluids Toradol and Zofran at this time. Patient continued having pain after Toradol, does not tolerate morphine, we will treat with oral hydrocodone-acetaminophen which she states she tolerates. Labs reveal slightly decreased WBC count 4.4, hemoglobin 10.9 which appears chronic for patient. Normal sodium 139, potassium 4.2, carbon dioxide slightly low at 19. Normal renal function with a BUN of 12 and a creatinine of 0.65. Glucose mildly elevated at 156. Normal lactate 1.8. AST and ALT slightly elevated 53 and 42, improved from priors. CT report printed discussed with the patient. CT reveals mild bowel wall thickening in the distal transverse descending and sigmoid colon may be secondary to underdistention versus nonspecific colitis. Colonic diverticulosis without focal diverticulitis is seen. There is hepatomegaly and diffuse hepatic steatosis. No definite CT signs pyelonephritis although close clinical correlation is recommended. Patient is not having any frontal abdominal pain or left-sided abdominal pain, suspect her symptoms are more related to urinary tract infection at this time, possible early pyelonephritis given right flank pain. Urine sample is orange because of Pyridium however it is revealing moderate bacteria, nitrite positive, WBCs present therefore we will treat patient with 1 g of Rocephin in the emergency department and discharge home on Bactrim b.i.d. times 10 days for UTI/pyelonephritis. Patient reports having no issues with Bactrim in the past. Recommended increase hydration, ibuprofen/acetaminophen if needed for pain, prompt follow up with PCP. Strict ED return precautions were discussed. Patient verbalized understanding of all this information is agreeable to the plan. She is stable for discharge home. <Ajay Schmidt MD - Last Filed: 03/01/25 21:01> Lab Data Labs: Lab Results 03/01/25 03/01/25 Range/Units 13:10 13:50 WBC 4.4 L (4.5-11.0) X10^3/uL RBC 4.01 (4.0-5.2) X10^6/uL Hgb 10.9 L (12.0-16.0) g/dL Hct 33.5 L (36-46) % MCV 83.4 (80-100) fL MCH 27.1 (26-34) PG MCHC 32.5 (30-36) % RDW 15.1 H (11.6-14.8) % Plt Count 218 (150-400) X10^3/uL Neut % (Auto) 62.5 (50-75) % Lymph % (Auto) 20.2 L (25-40) % Dane % (Auto) 15.1 H (3-14) % Eos % (Auto) 1.5 L (2-4) % Baso % (Auto) 0.7 (0-2) % Neut # (Auto) 2800 (0908-8358) /uL Lymph # (Auto) 900 L (4851-8960) /uL Dane # (Auto) 700 (0-900) /uL Eos # (Auto) 100 (0-450) /uL Baso # (Auto) 0 (0-100) /uL Sodium 139 (137-145) mmol/L Potassium 4.2 (3.4-5.1) mmol/L Chloride 107 (98-107) mmol/L Carbon Dioxide 19 L (22-32) mmol/L BUN 12 (7-17) mg/dL Creatinine 0.65 (0.52-1.04) mg/dL Estimated GFR > 60 (>60) mL/min BUN/Creatinine Ratio 18.5 (6-22) Glucose 156 H (80-110) mg/dL Lactate 1.8 (0.7-2.1) mmol/L Calcium 9.7 (8.4-10.2) mg/dL Total Bilirubin 0.8 (0.2-1.3) mg/dL AST 53 H (14-36) IU/L ALT 42 H (<35) IU/L Alkaline Phosphatase 96 (38-126) U/L Total Protein 8.1 (6.3-8.2) g/dL Albumin 4.8 (3.5-5.0) g/dL Globulin 3.3 (1.7-4.1) g/dL Albumin/Globulin Ratio 1.5 (1.0-2.8) Lipase 100 (23-300) U/L Urine Color [place] Urine Appearance Sl cloudy Urine pH 5.0 (4.5-8.0) Ur Specific [place] >=1.030 H (1.000-1.035) Urine Protein 1+ H (Negative) Urine Glucose (UA) Trace H (Negative) g/dL Urine Ketones Trace H (NEGATIVE) Urine Occult Blood Negative (Negative) Urine Nitrate Positive H (Negative) Urine Bilirubin Negative (NEGATIVE) Urine Urobilinogen 4.0 H (0.2) E.U./dL Ur Leukocyte Esterase Negative (NEGATIVE) Urine RBC None seen (0-5/HPF) Urine WBC 5-10/hpf H (0-5/HPF) Ur Squamous Epith Cells 5-10 /hpf H (0-5/HPF) Amorphous Sediment 1+ Urine Bacteria Moderate (10-30) H (None) Ur Culture Indicated? Specimen cultured Vol Urine Centrifuged 10ml (spun) Discharge Plan Departure Patient Disposition: Home Clinical Impression: Acute right flank pain Urinary tract infection Qualifiers: Urinary tract infection type: acute pyelonephritis Qualified Code(s): N10 - Acute pyelonephritis Instructions: DI for Kidney Infection Activity Restrictions/Additional Instructions: Dear Ms. Gómez, Thank you for coming to the emergency department. Today you were evaluated for urinary tract infection and right flank pain. Today we treated you with IV antibiotics and I am prescribing you a 10 day course of oral antibiotics to treat urinary tract infection/kidney infection. It is very important to complete the full course of antibiotics, increase hydration, and follow up with your primary care doctor for further evaluation. Please return to the emergency department if you develop fevers, severe pain, vomiting, abdominal pain, or any other concerns. Please follow up with your primary care doctor within the next 2-3 days for ER follow-up. (If you do not have a PCP you can call [phone]. ?to schedule an appointment with an [facility] Primary Care Provider) IF YOU DEVELOP ANY NEW OR WORSENING SYMPTOMS, RETURN TO THE ER! Please read the attached instructions, they highlight more specific treatments and interventions for you at home. Thank you for letting me participate in your care, Varsha Fox PA-C Prescriptions: New sulfamethoxazole-trimethoprim [Bactrim DS] 800-160 mg tablet 1 tab PO Q12H 10 Days Qty: 20 0RF No Action bupropion HCl [Wellbutrin XL] 300 mg tablet extended release 24 hr 300 mg PO QAM lisinopril 2.5 mg tablet 2.5 mg PO DAILY omeprazole magnesium [Prilosec OTC] 20 mg tablet,delayed release (DR/EC) 20 mg PO DAILY metformin 500 mg tablet 1,000 mg PO BID rosuvastatin [Crestor] 20 mg tablet 20 mg PO DAILY nitrofurantoin monohyd/m-cryst [Macrobid] 100 mg capsule 100 mg PO Q12H 5 Days Qty: 10 0RF Rx Instructions: must administer with a meal/food phenazopyridine [Pyridium] 200 mg tablet 200 mg PO Q8H Qty: 6 0RF thiamine HCl (vitamin B1) [Vitamin B-1] 100 mg Tablet 100 mg PO DAILY Qty: 30 0RF multivitamin with folic acid [Tab-A-Ximena] 400 mcg Tablet 1 tab PO DAILY Qty: 30 0RF Referrals: Tamra Messina MD [Primary Care Provider] - Stand Alone Forms: Patient Portal/API/Survey ED Sign-out <Ajay Schmidt MD - Last Filed: 03/01/25 21:01> Cosign ED Attending Cosignature Attestation: I was immediately available in the department for consultation. This documentation has been reviewed and I agree with assessment and plan. Supervised by Ajay Schmidt MD
--- NOTE | 2025-03-01 13:28 | DI.CT.S_ITS ---
PROCEDURE: CT ABDOMEN PELVIS W CON INDICATIONS: BL flank pain worse on right; uti TECHNIQUE: After the administration of intravenous contrast, axial sections acquired from the lung bases to the pubic symphysis. Coronal and sagittal reformats were performed. For radiation dose reduction, the following was used: automated exposure control, adjustment of mA and/or kV according to patient size. COMPARISON: [facility], CT, CT ABDOMEN PELVIS W CON, 10/24/2020, 13:08. FINDINGS: Image quality: Diagnostic. Lower Chest: No significant findings. ABDOMEN: Liver: No solid mass. Liver is mildly hypoattenuating, suspicious for fatty infiltration. Liver measures 19.5 cm craniocaudal dimension. Gallbladder: No radiopaque gallstones or wall thickening. Biliary ducts: No biliary dilation. Pancreas: No ductal dilation. Spleen: Size is within normal limits. Adrenal Glands: No adrenal nodules. Kidneys and Ureters: No hydronephrosis. No solid mass. No complex renal cystic lesion which requires follow up. Benign left renal cyst. Stomach and Bowel: Multiple diverticula are seen in the colon without focal fat stranding to suggest acute diverticulitis. Mild bowel wall thickening in the descending and sigmoid colon. Peritoneum: No abnormal intraperitoneal fluid. No free air. Ventral Wall: No significant ventral hernia. Abdominal Nodes: No retroperitoneal or mesenteric adenopathy by size criteria. Vessels: Aorta and inferior vena cava are normal in size. PELVIS: Pelvic Organs: Anteverted uterus. No suspicious adnexal mass. Bladder: No bladder wall thickening, accounting for underdistention. Pelvic Nodes: No enlarged lymph nodes. Miscellaneous: No inguinal hernias are seen. Bones: No aggressive osseous abnormality. IMPRESSION: 1. Mild bowel wall thickening in the distal transverse, descending, and sigmoid colon may be secondary to underdistention versus a nonspecific colitis. Colonic diverticulosis without focal diverticulitis seen. 2. Hepatomegaly and diffuse hepatic steatosis. 3. No definite CT signs of pyelonephritis although close clinical correlation is recommended. Approved by: Lázaro Dumont M.D. on 03/01/2025 at 15:56
[2025-03-01] MEDS: KETOROLAC 30 MG/ML VIAL 15 MG IV (13:57)
[2025-03-01] MEDS: ONDANSETRON 4 MG/2 ML INJ IV (13:58)
[2025-03-01] MEDS: SODIUM CHLORIDE 0.9% 1,000 ML 1000 ML IV (13:58)
[2025-03-01 14:20] LABS: Add Manual Diff / Slide Review NO; Basophils Absolute Auto 0 /uL (0-100); Basophils Percent Auto 0.7 % (0-2); Eosinophils Absolute Auto 100 /uL (0-450); Eosinophils Percent Auto 1.5 % (2-4); Hematocrit 33.5 % (36-46); Hemoglobin 10.9 g/dL (12.0-16.0); Lymphocytes Absolute Auto 900 /uL (1100-4500); Lymphocytes Percent Auto 20.2 % (25-40); Mean Corpuscular HGB Conc 32.5 % (30-36); Mean Corpuscular Hemoglobin 27.1 PG (26-34); Mean Corpuscular Volume 83.4 fL (80-100); Monocytes Absolute Auto 700 /uL (0-900); Monocytes Percent Auto 15.1 % (3-14); Neutrophils Absolute Auto 2800 /uL (1500-7000); Neutrophils Percent Auto 62.5 % (50-75); Platelet Count 218 X10^3/uL (150-400); Red Blood Cell Count 4.01 X10^6/uL (4.0-5.2); Red Cell Distribution Width 15.1 % (11.6-14.8); White Blood Cell Count 4.4 X10^3/uL (4.5-11.0)
[2025-03-01 14:40] LABS: Lactate (Lactic Acid) 1.8 mmol/L (0.7-2.1)
[2025-03-01 14:41] LABS: Lipase 100 U/L (23-300)
[2025-03-01 14:44] LABS: Alanine Aminotransferase 42 IU/L (<35); Albumin 4.8 g/dL (3.5-5.0); Albumin Globulin Ratio 1.5 (1.0-2.8); Alkaline Phosphatase 96 U/L (38-126); Aspartate Aminotransferase 53 IU/L (14-36); BUN Creatinine Ratio 18.5 (6-22); Bilirubin Total 0.8 mg/dL (0.2-1.3); Blood Urea Nitrogen 12 mg/dL (7-17); Calcium 9.7 mg/dL (8.4-10.2); Carbon Dioxide 19 mmol/L (22-32); Chloride 107 mmol/L (98-107); Estimated Glomerular Filt Rate > 60 mL/min (>60); Globulin 3.3 g/dL (1.7-4.1); Glucose 156 mg/dL (80-110); HEMOLYSIS 20 (0-50); Potassium 4.2 mmol/L (3.4-5.1); Sodium 139 mmol/L (137-145); Total Protein 8.1 g/dL (6.3-8.2)
[2025-03-01 14:47] LABS: Bilirubin Urine UA NEGATIVE (NEGATIVE); Glucose Urine UA TRACE g/dL (Negative); Ketones Urine UA TRACE (NEGATIVE); Leukocyte Esterase Urine UA NEGATIVE (NEGATIVE); Nitrite Urine UA POSITIVE (Negative); Occult Blood Urine UA NEGATIVE (Negative); Protein Urine UA 1+ (Negative); Specific Gravity Urine UA >=1.030 (1.000-1.035)
--- NOTE | 2025-03-01 15:02 | PC.NURSE ---
pt reports toradol helped pain for a little while but states it has since come back. pa notified.
[2025-03-01 15:06] LABS: Appearance Urine UA SL CLOUDY; Color Urine UA ORANGE
[2025-03-01 15:16] LABS: Bacteria Urine Moderate (10-30); RBC Urine None Seen (0-5/HPF); Urine Volume 10mL (spun); WBC Urine 5-10/HPF (0-5/HPF)
[2025-03-01 15:17] LABS: Amorphous Sediment Urine 1+; Culture Indicated Urine Specimen Cultured; Squamous Epithelial Cell Urine 5-10 /HPF (0-5/HPF)
[2025-03-01] MEDS: HYDROCODONE/ACET 5/325 TABLET 1 TAB PO (15:33)
[2025-03-01] MEDS: cefTRIAXone 1,000 MG in SODIUM CHLORIDE 0.9% 100 ML 200 MG IV (16:30)
--- NOTE | 2025-03-01 16:59 | PC.NURSE ---
pt reprots improvement in pain after norco. urine bright red in color.
[2025-03-01 17:02] VITALS: BP 129/73; PULSE 83; RESP 15; TEMP 36.7; O2SAT 96
== END 2025-03-01 17:37 | disposition home or self-care (01) ==
PROVIDERS: Emergency Provider Physician Assistant; PCP Internal Medicine
DX: N10 Acute pyelonephritis (principal)
CPT/HCPCS: 36415; 74177; 80053; 81001; 83605; 83690; 85025; 87040; 87086; 96361; 96365; 96375; 99284; J0696; J1885; J2405; Q9967